=== PATIENT | female | born 1995 | race Caucasian/White ===

== ENCOUNTER 2022-07-16 09:56 | Inpatient (IN) | payer OTHER, SELFPAY ==
[2022-07-16] VITALS (50 sets, daily range): BP systolic 95–131; BP diastolic 60–80; PULSE 60–154; RESP 14–19; TEMP 36.6–37.2; O2SAT 92–100; BMI 25.9
[2022-07-16 10:33] LABS: Basophils Percent Auto 0.3 % (0.2-1.2); Eosinophils Percent Auto 0.4 % (0-4.4); Hematocrit 39.7 % (37.0-47.0); Hemoglobin 13.7 g/dL (12.0-15.0); Immature Granulocyte Absolute 0.03 K/mm3 (0.00-0.031); Immature Granulocyte Percent A 0.4 % (0-0.5); Lymphocytes Absolute Auto 1.68 K/mm3 (0.9-3.2); Lymphocytes Percent Auto 22.8 % (18.3-44.2); Mean Corpuscular HGB Conc 34.5 g/dl (32-36); Mean Corpuscular Hemoglobin 33.9 pg (26-34); Mean Corpuscular Volume 98.3 fl (80-100); Mean Platelet Volume 10.3 fl (7.4-10.4); Monocytes Absolute Auto 0.4 K/mm3 (0.1-0.6); Monocytes Percent Auto 5.2 % (2.6-8.5); Neutrophils Absolute Auto 5.2 K/mm3 (1.3-6.7); Neutrophils Percent Auto 70.9 % (45.5-73.1); Platelet Count Result 167 k/mm3 (150-375); Red Blood Count 4.04 M/mm3 (4.2-5.4); Red Cell Distribution Width 12.9 % (11.5-14.5); White Blood Count 7.4 K/mm3 (4.5-10.0)
[2022-07-16] MEDS: LACTATED RINGERS 1,000 ML 125 ML IV CONT ×2 (10:44→11:42)
--- NOTE | 2022-07-16 10:49 | LDADM ---
This patient, Emilie Ramirez, was admitted to Labor/Delivery/Recovery 120 on 07/16/22 at 09:56. Plans for labor, pain management and were discussed with patient. Patient/family oriented to hospital policies and general routines including ID bracelet, bed and alarms, visiting hours, pain management, procedures, bathroom and other care routines, personal items, smoking policy, room service/diet and guest tray routines, infant security routines, and visiting hours. Patient/Family are encouraged to report perceived risks to care and to ask questions if they do not understand what they are told or what they should do. See OBIX for further documentation.
[2022-07-16 11:30] LABS: Rapid Plasma Reagin Non-Reactive (NonReactive)
--- NOTE | 2022-07-16 11:57 | PM.IMHP ---
H&P: HPI History of Present Illness Date/Time: 07/16/22 11:57 Chief Complaint: CS for breech Narrative: Emilie is a 27yo G1 at 39.1 here for primary CS for breech. otherwise uncomplicated. She declined attempt at ECV. Review of Systems Review of Systems: All systems reviewed & are unremarkable except as noted in HPI and below PMFSH Family History Family History (Updated 06/22/22 @ 12:49 by Ratna Resendez RN) Father Hypertension Grandparent Diabetes mellitus Heart disease Grandparent Diabetes mellitus Social History Social History Smoking status: Never smoker Substance use: never Lack of Transportation: No Lack of Food: Never True Current Housing: I Have Housing Concerned About Future Housing: No Difficulty Paying Gas/Electric Bills: No Difficulty Paying for Meds: No Currently Unemployed: No Education: Bachelor's Degree Difficulty w/ Childcare or Family Care: No Spiritual care concerns: No Meds Home Medications and Allergies Home Medications Medication Instructions Recorded Confirmed Type prenat.vits,judy,ohe-vxgk-wjpso 1 tablet PO DAILY 06/22/22 06/22/22 History Allergies Allergy/AdvReac Type Severity Reaction Status Date / Time No Known Allergies Allergy Verified 06/22/22 12:46 Vital Signs Vital Signs - 24 hr 07/16/22 10:48 07/16/22 10:44 07/16/22 10:46 Pulse Rate 71 74 Blood Pressure 124/75 116/75 Oxygen Delivery Room Air 07/16/22 11:01 07/16/22 11:16 07/16/22 11:31 Pulse Rate 75 82 76 Blood Pressure 118/80 125/74 124/64 Oxygen Delivery Exam Const: General: no acute distress Resp: Effort & Inspection: normal respiratory effort Auscultation: clear to auscultation bilaterally Cardio: Rate: regular rate Rhythm: regular rhythm GI: GI Palp: Yes Soft to palpation Extrem: General: normal to inspection H&P: Results Labs Labs: Short CBC 07/16/22 Range/Units 10:13 WBC 7.4 (4.5-10.0) K/mm3 Hgb 13.7 (12.0-15.0) g/dL Hct 39.7 (37.0-47.0) % Plt Count 167 (150-375) k/mm3 Assessment and Plan Assessment and plan (1) Breech presentation: Code(s): O32.1XX0 - Maternal care for breech presentation, not applicable or unspecified Status: Acute Plan COnsented for CS for breech. Discussed RBA, questions answered, will proceed.
--- NOTE | 2022-07-16 11:59 | WPDHPUPDATE1 ---
History and Physical Update Update Date/Time: 07/16/22 11:59 History and Physical has been reviewed, including an updated exam of the patient. There are NO changes in the patient's condition. Risks, benefits, and alternatives have been discussed and questions answered. Patient agrees to proceed with procedure.
[2022-07-16] MEDS: ceFAZolin 2 GM/D5W 50 ML 2 GM/50 ML BAG IVPB (12:02)
--- NOTE | 2022-07-16 12:43 | WPDANESEPPF ---
Anes - Initial Pre Proc Eval Date/Time: 07/16/22 12:43 Surgeon: Shaye Horn MD Pre Op Diagnosis: C/S Patient Data Age: 27 Gender: F Height: 1.7 m Weight: 75 kg Last Vital Signs Pulse 76 07/16/22 11:31 BP 124/64 07/16/22 11:31 O2 Del Method Room Air 07/16/22 10:48 Allergies Allergy/AdvReac Type Severity Reaction Status Date / Time No Known Allergies Allergy Verified 06/22/22 12:46 Home Medications Medication Instructions Recorded Confirmed Type prenat.vits,judy,xhw-ubrf-czdam 1 tablet PO DAILY 06/22/22 06/22/22 History Laboratory Tests 07/16/22 07/16/22 07/16/22 10:13 10:13 10:13 WBC 7.4 K/mm3 K/mm3 (4.5-10.0) RBC 4.04 M/mm3 L M/mm3 (4.2-5.4) Hgb 13.7 g/dL g/dL (12.0-15.0) Hct 39.7 % % (37.0-47.0) MCV 98.3 fl fl (80-100) MCH 33.9 pg pg (26-34) MCHC 34.5 g/dl g/dl (32-36) RDW 12.9 % % (11.5-14.5) Plt Count 167 k/mm3 k/mm3 (150-375) MPV 10.3 fl fl (7.4-10.4) Immature Gran % (Auto) 0.4 % % (0-0.5) Neut % (Auto) 70.9 % % (45.5-73.1) Lymph % (Auto) 22.8 % % (18.3-44.2) Assumption % (Auto) 5.2 % % (2.6-8.5) Eos % (Auto) 0.4 % % (0-4.4) Baso % (Auto) 0.3 % % (0.2-1.2) Lymph # (Auto) 1.68 K/mm3 K/mm3 (0.9-3.2) Assumption # (Auto) 0.4 K/mm3 K/mm3 (0.1-0.6) Eos # (Auto) 0.0 K/mm3 K/mm3 (0-0.3) Baso # (Auto) 0.0 K/mm3 K/mm3 (0.0-0.1) Abs Immat Gran (auto) 0.03 K/mm3 K/mm3 (0.00-0.031) Absolute Neuts (auto) 5.2 K/mm3 K/mm3 (1.3-6.7) Absolute Nucleated RBC 0.0 K/mm3 K/mm3 (0.0-0.012) Nucleated RBC % 0.0 % % (0.0-0.2) RPR Non-reactive (NonReactive) Blood Type O Positive Antibody Screen Negative Patient hx anesthesia problems: none Family hx anesthesia problems: none Results Review: All pre-operative results and documents have been reviewed as part of the pre-operative evaluation. [facility] Family History Family History Father Hypertension Grandparent Diabetes mellitus Heart disease Grandparent Diabetes mellitus Social History Social History Smoking status: Never smoker Substance use: never Lack of Transportation: No Lack of Food: Never True Current Housing: I Have Housing Concerned About Future Housing: No Difficulty Paying Gas/Electric Bills: No Difficulty Paying for Meds: No Currently Unemployed: No Education: Bachelor's Degree Difficulty w/ Childcare or Family Care: No Spiritual care concerns: No Anes - Eval Final PreProcedure Day of Procedure 07/16/22 12:43 Patient weight: normal Heart: regular rate and rhythm Lungs: clear to auscultation Airway: Mallampati scale class II Neurological: alert and oriented Last oral intake: >/= 8 hours ASA classification: II Emergent: no Anesthetic plan: proceed Anesthesia type and monitoring: regional spinal and standard monitoring Results Review: All pre-operative results and documents have been reviewed as part of the pre-operative evaluation. Informed Consent: The patient's anesthetic plan and its attendant risks and benefits were discussed with the patient/family/POA. Questions were solicited and answers provided to the satisfaction of the patient/family/POA.
--- NOTE | 2022-07-16 13:15 | PM.OBPRVD ---
OB - Delivery Note Procedure Delivery date: 07/16/22 Procedure: primary section Events: Breech Presentation Route of delivery: Specimen: Yes (placenta) Quantitative Blood Loss (ml): 355 Anesthesia type: Spinal Disposition: Floor Complications: none Narrative: The patient was taken to the OR and had her epidural anesthesia dosed adequately. She was placed in dorsal supine position with left lateral tilt. SCDs and gilbert had been placed. She was prepped and draped in the normal sterile fashion. A Pfannensteil skin incision was made and carried through to the underlying layer of fascia. The fascia was incised in the midline and then extended laterally using Hallman scissors. The muscles were in the midline and the peritoneum was entered bluntly. The peritoneal incision was extended inferiorly and superiorly with care to avoid the bladder. The bladder blade was then inserted, the vesicouterine peritoneum was grasped, incised with Metzenbaum scissors, and a bladder flap created. The bladder blade was reinserted. A low transverse uterine incision was made with a scalpel and extended bluntly. AROM was performed and fluid was noted to be clear. The baby was delivered easily in breech presentation in normal fashion. The baby's oropharynx was suctioned. After 30 seconds, the cord was clamped and cut and the was handed off. Cord blood was obtained and the placenta was then removed manually. The uterus was exteriorized. A moist lap sponge was used to curette the endometrium. The uterine incision was then closed with two layers of 0-Vicryl in a running, locking fashion. Good hemostasis was noted. The posterior cul de sac was irrigated with normal saline and cleared of all clot and debris. The uterus was returned to the abdomen. Both lateral gutters were then irrigated. The rectus muscles were inspected and found to be hemostatic. The fascia was reapproximated using 0-Vicryl in running fashion. A rent in the fascia was also repaired with 3-0 vicryl so as to not induce a hernia. The subcutaneous tissue was irrigated with normal saline and made hemostatic with Bovie electrocautery. The subcutaneous tissue was reapproximated with a layer of running 2-0 plain gut. The skin was then closed with absorbable elicia. Steri strips and a bandage were applied. The uterus was evacuated. The patient tolerated the procedure very well. All counts were correct. She was taken to the recovery room in good condition. Baby Date of : 07/16/22 Time of : 12:35 Weeks of gestation at delivery: 39 Infant gender: Female Weight (pounds): 6 Weight (ounces): 13 presentation: breech Placenta delivery description: Manual Removal Cord Vessel Description: 3 Vessels and Delayed Cord Clamping score one minute: 9 score five minutes: 9
[2022-07-16] MEDS: OXYTOCIN 30 UNITS/NS 500 ML 30 UNITS/500 ML BAG 125 UNITS IV CONT (14:05)
[2022-07-16] MEDS: KETOROLAC 30 MG/ML VIAL (*BKC) IV PUSH (14:07)
--- NOTE | 2022-07-16 15:35 | PC.NURSE ---
Patient transferred to post room #291 via stretcher. Support person present. Oriented to unit, room, information board, rooming in, admission packet and security measures. Patient verbalizes understanding.
[2022-07-16] MEDS: DEXTROSE 5%/0.45% SOD CHL 1,000 ML 125 ML IV CONT (18:44)
[2022-07-17] MEDS: HYDROcodone/acetaminophen (*CRX) 5-325 MG TABLET 1 TAB PO ×4 (01:14→23:52)
[2022-07-17] MEDS: IBUPROFEN 600 MG TABLET PO ×4 (01:14→23:52)
[2022-07-17 04:35] VITALS: BP 115/69; PULSE 65; RESP 16; TEMP 36.5; O2SAT 100
[2022-07-17 05:27] LABS: Basophils Percent Auto 0.2 % (0.2-1.2); Eosinophils Percent Auto 0.4 % (0-4.4); Hematocrit 31.7 % (37.0-47.0); Immature Granulocyte Absolute 0.06 K/mm3 (0.00-0.031); Immature Granulocyte Percent A 0.6 % (0-0.5); Lymphocytes Absolute Auto 1.45 K/mm3 (0.9-3.2); Lymphocytes Percent Auto 15.7 % (18.3-44.2); Mean Corpuscular HGB Conc 34.7 g/dl (32-36); Mean Corpuscular Hemoglobin 34.6 pg (26-34); Mean Corpuscular Volume 99.7 fl (80-100); Mean Platelet Volume 10.7 fl (7.4-10.4); Monocytes Absolute Auto 0.6 K/mm3 (0.1-0.6); Neutrophils Absolute Auto 7.1 K/mm3 (1.3-6.7); Neutrophils Percent Auto 77.1 % (45.5-73.1); Platelet Count Result 138 k/mm3 (150-375); Red Blood Count 3.18 M/mm3 (4.2-5.4); Red Cell Distribution Width 12.9 % (11.5-14.5); White Blood Count 9.2 K/mm3 (4.5-10.0)
--- NOTE | 2022-07-17 07:06 | PM.OBPNVD ---
OB - PN: Subj Subjective Date/time seen: 07/17/22 07:06 Patient comments: no complaints and pain well controlled baby status: doing well and nursing well Slemp feeding status: exclusively breast feeding Narrative: POD 1 from primary CS. Doing well. Normal lochia. Eating, ambulating, gilbert out. Has not voided yet. OB - PN: Obj Data Labs 07/17/22 04:32 Labs: Laboratory Results - last 24 hr 07/16/22 07/16/22 07/16/22 10:13 10:13 10:13 WBC 7.4 RBC 4.04 L Hgb 13.7 Hct 39.7 MCV 98.3 MCH 33.9 MCHC 34.5 RDW 12.9 Plt Count 167 MPV 10.3 Immature Gran % (Auto) 0.4 Neut % (Auto) 70.9 Lymph % (Auto) 22.8 Sebastian % (Auto) 5.2 Eos % (Auto) 0.4 Baso % (Auto) 0.3 Lymph # (Auto) 1.68 Sebastian # (Auto) 0.4 Eos # (Auto) 0.0 Baso # (Auto) 0.0 Abs Immat Gran (auto) 0.03 Absolute Neuts (auto) 5.2 Absolute Nucleated RBC 0.0 Nucleated RBC % 0.0 RPR Non-reactive Blood Type O Positive Antibody Screen Negative 07/17/22 04:32 WBC 9.2 RBC 3.18 L Hgb 11.0 L Hct 31.7 L MCV 99.7 MCH 34.6 H MCHC 34.7 RDW 12.9 Plt Count 138 L MPV 10.7 H Immature Gran % (Auto) 0.6 H Neut % (Auto) 77.1 H Lymph % (Auto) 15.7 L Sebastian % (Auto) 6.0 Eos % (Auto) 0.4 Baso % (Auto) 0.2 Lymph # (Auto) 1.45 Sebastian # (Auto) 0.6 Eos # (Auto) 0.0 Baso # (Auto) 0.0 Abs Immat Gran (auto) 0.06 H Absolute Neuts (auto) 7.1 H Absolute Nucleated RBC 0.0 Nucleated RBC % 0.0 RPR Blood Type Antibody Screen OB - PN A/P Plan day: 1 Plan: routine care Comments: Doing very well. Bandage off, IV out today, may shower. Time Spent With Patient Time: Total time spent is greater than 50% in coordination of care (as documented) at patient's floor/unit and/or counseling patient: Exam Narrative: NAD abdomen soft, appropriately tender, incision bandaged Extremities nontender with 1+ edema
[2022-07-17 07:40] VITALS: BP 123/77; PULSE 67; RESP 16; TEMP 36.5; O2SAT 100
--- NOTE | 2022-07-17 07:50 | WPDANLDNPN2 ---
Anes-Prog Note L&D-Neuraxial Date/Time: 07/17/22 07:50 Neuraxial medications: intrathecal PF morphine Opiod-related complaints: none Patient feedback: Patient satisfied with post-operative pain management.
--- NOTE | 2022-07-17 07:50 | WPDANLDPN2 ---
Anes-Prog Note L&D Date/Time: 07/17/22 07:50 Comfortable throughout: section Neuraxial method: spinal Epidural/Spinal procedure site: clean & non-tender Neuro status: Neuro function grossly intact. Cardiovascular status: normal Respiratory status: normal Airway patency: baseline Mental status: baseline Post-Op hydration status: normal Vital Signs: Last Vital Signs Temp 36.5 C 07/17/22 04:35 Pulse 65 07/17/22 04:35 Resp 16 07/17/22 04:35 BP 115/69 07/17/22 04:35 Pulse Ox 100 07/17/22 04:35 O2 Del Method Room Air 07/16/22 15:17 Pain score (VAS): 0 I/O: Intake & Output 07/16/22 07/16/22 07/17/22 15:59 23:59 07:59 Intake Total 2000 1600 Output Total 300 3925 Balance 1700 -2326 Post-procedural complaints: none Patient feedback: Patient satisfied with anesthetic care.
[2022-07-17] MEDS: MULTIVIT/MIN/PREN/FOL AC/IRON TABLET 1 TAB PO (08:10)
[2022-07-17] MEDS: DOCUSATE SODIUM 100 MG CAPSULE PO ×2 (08:10→14:04)
[2022-07-17] MEDS: SIMETHICONE 80 MG TAB.CHEW PO (08:12)
[2022-07-17 11:42] VITALS: BP 115/65; PULSE 74; RESP 16; TEMP 37.1; O2SAT 98
--- NOTE | 2022-07-17 12:36 | PC.NURSE ---
[id number] Introductions were made, then consulted with patient to assess needs related to . Mother is demonstrating her infant cross cradle to the right breast. Resources provided for inpatient and outpatient services with the feeding sheet, mom/baby guide and name written on the white board. Mother voiced understanding of information and consents for some adjusting since she states the latch feels a bit pinchy possibly related to the not close to mothers body with the mouth angled down pulling the nipple. Mother demonstrates how to detach infant from the breast and nipple is misshaped. Reviewed positioning with infants ear, shoulder and hip in alignment. Optimal big, wide, open gape with brought into the breast for a deep latch with the chin buried and nose near. Mother states the latch is improved and there's no pain. Demonstrated to mother how she can support the effective latch to prevent from pulling on the nipple by supporting infant close to the body. Educated mother on how to watch and listen for signs of swallowing. Reviewed good handwashing when or touching the breast/nipples to prevent infection. Resources used to facilitate learning were used with the visual handouts, tool, mom and baby guide. Mother voiced understanding of skin to skin to encourage if it has been 2 -2.5 hours since the start of the last , to call if does not latch, or if there is discomfort with . Resources provided for inpatient/outpatient with business card, feeding sheet and the mom/baby guide. Mother voiced understanding of information, demonstrated learning and will call if there is a request for assistance. Reported to the primary RN.
[2022-07-17] MEDS: HYDROcodone/acetaminophen (*CRX) 10-325 MG TABLET 1 TAB PO (19:06)
[2022-07-17 19:09] VITALS: BP 122/79; PULSE 76; RESP 16; TEMP 36.7; O2SAT 100
[2022-07-18 07:23] VITALS: BP 117/78; PULSE 74; RESP 16; TEMP 36.6; O2SAT 100
--- NOTE | 2022-07-18 07:32 | P.PNOB_ITS ---
OB - PN: Subj Subjective Date/time seen: 07/18/22 07:32 Patient comments: no complaints and incisional pain [place] baby status: doing well and nursing well [place] feeding status: exclusively breast feeding Narrative: would like DC home tomorrow. OB - PN: Obj Data Labs 07/17/22 04:32 OB - PN A/P Assessment and Plan (1) delivery delivered: Code(s): O82 - Encounter for delivery without indication Status: Acute Plan day: 2 Plan: routine care Time Spent With Patient Time: Total time spent is greater than 50% in coordination of care (as documented) at patient's floor/unit and/or counseling patient: Exam Narrative: NAD abdomen soft, appropriately tender, incision CDI Extremities nontender with 1+ edema
[2022-07-18] MEDS: HYDROcodone/acetaminophen (*CRX) 5-325 MG TABLET 1 TAB PO ×3 (08:53→18:25)
[2022-07-18] MEDS: IBUPROFEN 600 MG TABLET PO ×2 (08:54→18:25)
[2022-07-18] MEDS: MULTIVIT/MIN/PREN/FOL AC/IRON TABLET 1 TAB PO (08:55)
[2022-07-18] MEDS: DOCUSATE SODIUM 100 MG CAPSULE PO ×2 (08:55→15:40)
[2022-07-18] MEDS: SIMETHICONE 80 MG TAB.CHEW PO ×3 (08:55→18:25)
[2022-07-18] MEDS: LANOLIN (LANSINOH) 7.5 GM CREAM 1 APPLIC TOPICAL (15:40)
[2022-07-18 20:20] VITALS: BP 120/78; PULSE 71; RESP 18; TEMP 36.6; O2SAT 100
[2022-07-19] MEDS: SIMETHICONE 80 MG TAB.CHEW PO ×2 (04:45→09:19)
[2022-07-19] MEDS: IBUPROFEN 600 MG TABLET PO ×2 (04:45→11:44)
[2022-07-19] MEDS: HYDROcodone/acetaminophen (*CRX) 5-325 MG TABLET 1 TAB PO ×2 (04:45→09:19)
[2022-07-19 07:20] VITALS: BP 125/83; PULSE 71; RESP 16; TEMP 36.8; O2SAT 100
--- NOTE | 2022-07-19 07:55 | PM.OBPNVD ---
OB - PN: Subj Subjective Date/time seen: 07/19/22 07:55 Patient comments: no complaints, pain well controlled, tolerating diet and flatus present baby status: doing well OB - PN: Obj Data Labs 07/17/22 04:32 OB - PN A/P Plan day: 2 Plan: routine care and discharge home (Follow up in 1 week) Time Spent With Patient Time: Total time spent is greater than 50% in coordination of care (as documented) at patient's floor/unit and/or counseling patient: Time with patient: less than 15 minutes Review of Systems Review of Systems: All systems reviewed & are unremarkable except as noted in HPI and below Exam Narrative: Fundus firm. Vaginal flow controlled. Incision dry and intact. Negative homans. No redness, warmth, or pain of lower ext. Const: General: comfortable Chest: Breast/axilla inspection: normal inspection of the breasts Resp: Effort & Inspection: normal respiratory effort Auscultation: clear to auscultation bilaterally Cardio: Rate: regular rate GI: GI Palp: Yes Soft to palpation Psych: Appearance: grossly normal Affect: normal affect Attitude: cooperative Thought content: Yes Normal thought content present Judgement: Good judgement present (Psych)
--- NOTE | 2022-07-19 07:55 | PM.OBDSVD ---
DS: Admitting Diagnosis Discharge Date 07/19/22 Admitting Diagnosis Scheduled DS: Discharge Diagnosis Discharge Diagnosis (1) delivery delivered: Code(s): O82 - Encounter for delivery without indication Status: Acute OB - DS: Summary OB Procedures : None OB Procedures Intrapartum: Spontaneous Vag Delivery OB Procedures: : None Peripartum Data Procedures: Procedures Operation Date: 07/16/22 12:00 Actual Procedure Side Surgeon p Section Shaye Horn MD Time Spent with Patient Time attestation: Total time spent providing and/or coordinating discharge services: Discharge Plan Discharge Attending physician on discharge: Shaye Horn Discharging Clinician: Linette Brower Patient Disposition: Home, Self-Care Activity: pelvic rest Diet: as tolerated Patient Instructions: Antibiotic Form Stand Alone Forms: General Discharge Information Follow-up/Referrals: Shaye Horn MD [Physician] - Discharge Medications: New hydrocodone-acetaminophen 5-325 mg tablet 1 tablet PO Q6H PRN (Reason: pain) Qty: 20 0RF ibuprofen 600 mg Tablet 600 mg PO Q6H PRN (Reason: Cramping) Qty: 20 0RF Continued #2 Tablet 1 tablet PO DAILY Date of admission: 07/16/22 09:56 Primary Care Provider: UNKNOWN,DOCTOR Admitting Provider: Shaye Horn Attending physician on admission: Shaye Horn Condition: Stable
[2022-07-19] MEDS: DOCUSATE SODIUM 100 MG CAPSULE PO (09:19)
[2022-07-19] MEDS: MULTIVIT/MIN/PREN/FOL AC/IRON TABLET 1 TAB PO (09:19)
--- NOTE | 2022-07-19 12:01 | PC.NURSE ---
Patient viewed the discharge video Mother & Baby Care, The First Two Weeks . Patient was given the opportunity and encouraged to ask questions. Patient verbalized understanding of information shared and has been given the mother/baby guide for home reference.
[2022-07-20 10:28] VITALS: BP 119/73; PULSE 75; RESP 18; TEMP 37.1; O2SAT 100
== END 2022-07-19 12:25 | disposition home or self-care (01) | DRG 788 ==
LOC: ANHOB2 07-19 10:17 → ANHLDR 07-20 09:26 → ANHOB2 07-20 09:26
PROVIDERS: Admitting Provider Obstetrics & Gynecology; Visit Provider Advanced Practice Midwife
PROC: 10D00Z1 Extraction of Products of Conception, Low, Open Approach (ICD-10-PCS; CPT 59514; principal; 2022-07-16 12:00)
DX: O32.1XX0 Maternal care for breech presentation, not applicable or unspecified (principal); Z37.0 Single live birth; Z3A.39 39 weeks gestation of pregnancy
CPT/HCPCS: 36415; 85025; 86592; 86850; 86900; 86901; A9270; J0131; J0690; J1885; J2274; J2405; J2590; J7120

== ENCOUNTER 2023-08-28 07:44 | Emergency (ER) | payer OTHER, SELFPAY ==
[2023-08-28 07:47] VITALS: BP 133/79; PULSE 81; RESP 18; TEMP 36.6; O2SAT 98
--- NOTE | 2023-08-28 08:26 | ED.GENADULT ---
HPI - General Adult General Chief complaint: Vaginal Bleeding Stated complaint: vag bleed 12 weeks Time Seen by Provider: 08/28/23 07:46 History of Present Illness HPI narrative: 28-year-old female presenting emergency department for evaluation vaginal bleeding that started this morning. Patient is approximately 12 weeks does follow-up with Dr. Cuevas. Patient states today she did notice some vaginal bleeding that was bright red. Initial bright red vaginal bleeding patient states the bleeding has improved. Patient did have an outpatient ultrasound with OB Gy[facility], US 07/[address] Cuevas. 8 wks 6 days. 03/03 CAROL. 09/01 follow up scheduled with Dr. Cuevas Related Data Home Medications Medication Instructions Recorded Confirmed prenat.vits,judy,plw-fomp-lltsg 1 tablet PO DAILY 06/22/22 06/22/22 Allergies Allergy/AdvReac Type Severity Reaction Status Date / Time No Known Allergies Allergy Verified 06/22/22 12:46 Review of Systems Review of Systems: All systems reviewed & are unremarkable except as noted in HPI and below PMFSH Family History Family History Father Hypertension Grandparent Diabetes mellitus Heart disease Grandparent Diabetes mellitus Social History Social History Smoking status: Never smoker Substance use: never Lack of Transportation: No Lack of Food: Never True Current Housing: I Have Housing Concerned About Future Housing: No Difficulty Paying Gas/Electric Bills: No Difficulty Paying for Meds: No Currently Unemployed: No Education: Bachelor's Degree Difficulty w/ Childcare or Family Care: No Spiritual care concerns: No Exam Narrative: APPEARANCE: Well appearing, no pain, no distress, well-nourished. HEAD: normocephalic, atraumatic. EYES: PERRLA/EOMI, conjunctivae clear. NOSE: Normal no drainage NECK: Supple. No adenopathy, no masses. RESPIRATORY: Airway patent, respirations nonlabored. Clear to auscultation bilaterally, no rales, rhonchi, wheezing. CARDIOVASCULAR: Regular rate and rhythm without murmurs rubs or gallops. ABDOMINAL: Soft, nontender, nondistended, normal bowel sounds MUSCULOSKELETAL: Moves all extremities. Strength/ROM intact, No edema, No calf tenderness. NEURO: Alert. Cranial nerves II through XII intact. Good gait. Good coordination SKIN: Warm, dry. Normal Color General exam: Normal appearing cervix, old brown blood in the vaginal vault with no bright red bleeding PSYCHIATRIC: Normal affect/mood. Course Course Emergency Course: Patient was discharged to home with outpatient follow-up Vital Signs Vital signs: Vital Signs Temperature 97.9 F 08/28/23 07:47 Pulse Rate 81 08/28/23 07:47 Respiratory Rate 18 08/28/23 07:47 Blood Pressure 133/79 08/28/23 07:47 Pulse Oximetry 98 08/28/23 07:47 Oxygen Delivery Room Air 08/28/23 07:47 Temperature 97.9 F 08/28/23 07:47 Pulse Rate 70 08/28/23 10:20 Respiratory Rate 16 08/28/23 10:20 Blood Pressure 122/89 08/28/23 10:20 Pulse Oximetry 100 08/28/23 10:20 Oxygen Delivery Room Air 08/28/23 07:47 Medical Decision Making [facility] Narrative Medical decision making narrative: 28-year-old female presents emergency department for evaluation of vaginal bleeding. Patient is proximal 12 weeks . I discussed the case with Dr. Cuevas and He did confirm the outpatient ultrasound. Bedside ultrasound showed no heartbeat. Patient's beta hCG is 2144. On pelvic exam patient did have some old brown blood but no bright red blood. Patient is O positive. Patient was updated on the results of her imaging and concerns for miscarriage. Patient was encouraged close follow-up with Dr. Cuevas. Differential Diagnosis Differential Diagnosis: Vaginal discharge, vaginal bleeding, early miscarriage Vital Signs Vital Signs: Vital Signs Te
[2023-08-28 08:42] LABS: Basophils Percent Auto 0.3 % (0.2-1.2); Eosinophils Absolute Auto 0.1 K/mm3 (0-0.3); Hematocrit 40.2 % (37.0-47.0); Hemoglobin 13.4 g/dL (12.0-15.0); Immature Granulocyte Absolute 0.01 K/mm3 (0.00-0.031); Immature Granulocyte Percent A 0.3 % (0-0.5); Lymphocytes Absolute Auto 1.34 K/mm3 (0.9-3.2); Lymphocytes Percent Auto 37.9 % (18.3-44.2); Mean Corpuscular HGB Conc 33.3 g/dl (32-36); Mean Corpuscular Hemoglobin 32.4 pg (26-34); Mean Corpuscular Volume 97.3 fl (80-100); Mean Platelet Volume 9.8 fl (7.4-10.4); Monocytes Absolute Auto 0.2 K/mm3 (0.1-0.6); Monocytes Percent Auto 5.9 % (2.6-8.5); Neutrophils Absolute Auto 1.9 K/mm3 (1.3-6.7); Neutrophils Percent Auto 53.6 % (45.5-73.1); Platelet Count Result 176 k/mm3 (150-375); Red Blood Count 4.13 M/mm3 (4.2-5.4); Red Cell Distribution Width 12.9 % (11.5-14.5); White Blood Count 3.5 K/mm3 (4.5-10.0)
[2023-08-28 08:45] LABS: Appearance Urine Clear (Clear); Bacteria Urine None Seen /hpf; Bilirubin Urine Negative (Negative); Blood Urine 3+ (Negative); Color Urine Yellow (Yellow); Glucose Urine UA Negative (Negative); Ketones Urine Negative (Negative); Leukocyte Esterase Ur Negative LEU/UL (Negative); Nitrate Urine Negative (Negative); Non Pathogenic Casts 0-2; Protein Urine Negative (Negative); RBC Urine 0-2 /hpf (0-2); Squamous Epithelial Cell Urine Occasional /hpf (Few); Urobilinogen Urine 0.2 mg/dL (<2.0); WBC Urine 0-5 /hpf (0-3); pH Urine 7.5 (5.0-9.0)
[2023-08-28 08:47] LABS: Add Urine Microscopic? YES; Specific Grav Ur 1.004 (1.001-1.035)
[2023-08-28 08:53] LABS: Alanine Aminotransferase 18 U/L (6-35); Albumin Level 4.8 g/dL (3.5-5.1); Alkaline Phosphatase 60 U/L (38-126); Anion Gap 11 mmol/L (4-12); Aspartate Amino Transferase 23 U/L (14-36); Bilirubin,Total 0.6 mg/dL (0.2-1.3); Blood Urea Nitrogen 9 mg/dL (7-17); Calcium 9.5 mg/dL (8.4-10.2); Carbon Dioxide 22 mmol/L (22-30); Chloride 108 mmol/L (98-107); Estimated CRCL calculation 111 ml/min; Estimated Glomerular Filt Rate > 60; Glucose 86 mg/dL (65-110); Potassium 3.9 mmol/L (3.4-5.0); Sodium 141 mmol/L (137-145)
[2023-08-28 08:56] LABS: Prothrombin Time 13.1 Seconds (11.1-14.7)
[2023-08-28 08:57] LABS: Partial Thromboplastin Time 26.2 Seconds (22.3-36.8)
[2023-08-28 10:20] VITALS: BP 122/89; PULSE 70; RESP 16; O2SAT 100
== END 2023-08-28 10:20 | disposition home or self-care (01) ==
PROVIDERS: Emergency Provider Emergency Medicine
DX: O46.91 Antepartum hemorrhage, unspecified, first trimester (principal); Z3A.12 12 weeks gestation of pregnancy
CPT/HCPCS: 36415; 80053; 81001; 84702; 85025; 85610; 85730; 99283

== ENCOUNTER 2023-09-13 01:24 | Day surgery (SDC) | payer OTHER, SELFPAY ==
[2023-09-12 12:58] VITALS: BMI 20.3
--- NOTE | 2023-09-12 13:03 | PC.NURSE ---
Report to the Outpatient Waiting Room, entrance under the green pavilion located off [facility], at time _1030_ on date _[id number]_. Planned Procedure Time: _1230_. Time changes happen often and if your time is changed the preop area will call you the afternoon before. - You and your visitor will be asked to self-screen and do not enter if you have any COVID symptoms. - A mask is optional within the hospital at this time. Patients may have clear liquids (water, carbonated beverages, clear teas, apple juice) until 3 hours prior to surgery with a maximum of 20 ounces. - No food from midnight until time of surgery Take the following medications with a SIP of water the morning of surgery: __None DO NOT STOP ANY OF YOUR OTHER PRESCRIPTION MEDICATIONS PRIOR TO SURGERY ?EXCEPT THE FOLLOWING Medications to discontinue per physician None Date to take last dose Please no make-up, nail turkish, hairspray, perfume, deodorant, or body powder the day of surgery. No jewelry (including any body piercings) or valuables the day of surgery, leave them at home. Please take a shower or bath the night before, or the morning of, surgery with an antibacterial soap. Wear comfortable, loose fitting clothing. - Jewelry must be removed prior to entering the operating room. Rings and piercings that are not removed may be cut off. - The hospital will not accept responsibility for valuables. - Please leave all valuables, including medications, at home the day of surgery. If you are going home after surgery, a licensed tour bus driver/guide must drive you home. - NO public transportation without another adult if you receive anesthesia. - We recommend that an adult stay with you for 24 hours following discharge. - We also recommend that you do not drive, make important decision, drink alcoholic beverages, or take any drugs that were not prescribed by your health care provider for at least 24 hours after your discharge time. Follow any additional instructions given to you from your surgeon. If you or anyone in your household have experienced Covid symptoms in the past week, please notify your surgeon or the nurse liaison at the phone number below for possible testing. Telephone instructions given to __Anna___and asked if any additional questions and then verbalized understanding. Patient advised to call surgeon office or pre surgery nurse liaison [phone] if any additional questions.
[2023-09-13] MEDS: LACTATED RINGERS 1,000 ML 30 ML IV CONT (10:30)
--- NOTE | 2023-09-13 10:56 | PM.OBTRLD ---
OB - Triage/Final Diagnosis Visit Information Comments/Additional reasons for admission: I have assessed the risk for this patient, Emilie Ramirez, and determined that she would benefit from observation care.
[2023-09-13] MEDS: ACETAMINOPHEN 500 MG TABLET 1000 MG PO (11:14)
--- NOTE | 2023-09-13 11:14 | P.PNAN_ITS ---
Anes - Initial Pre Proc Eval Procedure: Operation Date: 09/13/23 12:30 Proposed Procedures p Suction Dilation and Curettage - Hammad Cuevas MD Date/Time: 09/13/23 11:14 Surgeon: Hammad Cuevas MD Pre Op Diagnosis: Retained products of conception Patient Data Age: 28 Gender: F Height: 1.7 m Weight: 59 kg Allergies Allergy/AdvReac Type Severity Reaction Status Date / Time No Known Allergies Allergy Verified 09/13/23 11:14 Home Medications Medication Instructions Recorded Confirmed Type No Home Medications 09/12/23 09/12/23 History Patient hx anesthesia problems: none Family hx anesthesia problems: none Results Review: All pre-operative results and documents have been reviewed as part of the pre- operative evaluation. PMFSH Past Medical History Medical History (Updated 09/13/23 @ 11:14 by Ross Damon MD) Missed ab Family History Family History Father Hypertension Grandparent Diabetes mellitus Heart disease Grandparent Diabetes mellitus Social History Social History Smoking status: Never smoker Alcohol intake: current Drinks per week: 1 Substance use: never Lack of Transportation: No Lack of Food: Never True Current Housing: I Have Housing Concerned About Future Housing: No Difficulty Paying Gas/Electric Bills: No Difficulty Paying for Meds: No Currently Unemployed: No Education: Bachelor's Degree Difficulty w/ Childcare or Family Care: No Living arrangements: with family Spiritual care concerns: No Anes - Eval Final PreProcedure Day of Procedure 09/13/23 11:14 Patient weight: normal Heart: regular rate and rhythm Lungs: clear to auscultation Airway: Mallampati scale class II Neurological: alert and oriented Last oral intake: >/= 8 hours ASA classification: II Emergent: no Anesthetic plan: proceed Anesthesia type and monitoring: general GIVS and standard monitoring Results Review: All pre-operative results and documents have been reviewed as part of the pre- operative evaluation. Informed Consent: The patient's anesthetic plan and its attendant risks and benefits were discussed with the patient/family/POA. Questions were solicited and answers provided to the satisfaction of the patient/family/POA.
[2023-09-13 11:15] VITALS: BP 127/74; PULSE 71; RESP 16; TEMP 36.6; O2SAT 100
--- NOTE | 2023-09-13 11:56 | WPDHPUPDATE1 ---
History and Physical Update Update Date/Time: 09/13/23 11:56 History and Physical has been reviewed, including an updated exam of the patient. There are NO changes in the patient's condition. Risks, benefits, and alternatives have been discussed and questions answered. Patient agrees to proceed with procedure.
[2023-09-13] MEDS: LIDOCAINE HCL 1% LOCAL INJ 10 ML VIAL INFILTRATE (12:19)
--- NOTE | 2023-09-13 12:25 | W.PM.PROC2 ---
Procedure Note - Detailed Date of Procedure 09/13/23 Pre-op Diagnosis Retained products of conception Post-op Diagnosis Same Procedure Performed Suction D&C Surgeon Hammad Cuevas MD Anesthesia MAC Indications missed Findings normal-appearing vulva vagina and cervix to. Moderate amount of products conception within the uterus. 8 cm uterus Description of Procedure the patient was taken the operating room. She was prepped and draped in dorsal lithotomy position after induction of mac anesthesia. A speculum was placed in the vagina. Cervix grasped with tenaculum. The cervix was dilated to about 1 cm Using Coles dilators. A 8. Tamazight curved curette was used to perform suction D&C. The curette was introduced and vacuum was applied. The curette was removed over all surfaces of the intrauterine cavity multiple times. This was done until all the surfaces were clear and had the familiar grainy texture they can be felt through the instrument. A sharp curette was then used to curettage all the surfaces. The suction cup was then reapplied 1 more time to remove any debris. The instruments were removed. The speculum and tenaculum were removed. The patient tolerated the procedure well. She was taken recovery room stable condition. Estimated Blood Loss 50 Drains No Packing No Pathology Yes Complications No immediate complications Condition Stable Disposition PACU
[2023-09-13 12:26] VITALS: BP 108/59; PULSE 63; RESP 14
[2023-09-13 12:55] VITALS: BP 108/59; PULSE 63; RESP 20
[2023-09-13 13:05] VITALS: BP 109/62; PULSE 59; RESP 20
== END 2023-09-13 13:15 | disposition home or self-care (01) ==
PROVIDERS: Visit Provider Obstetrics & Gynecology
PROC: (CPT 59812; principal; 2023-09-13 12:30)
DX: O03.4 Incomplete spontaneous abortion without complication (principal)
CPT/HCPCS: 59812; 36415; 85461; 86850; 86900; 86901; 88305; A9270; J1100; J2250; J2405; J2704; J3010; J7120

== ENCOUNTER 2024-08-13 09:48 | Outpatient (CLI) | payer OTHER, SELFPAY ==
[2024-08-13 10:22] LABS: Hematocrit 35.1 % (37.0-47.0); Hemoglobin 11.9 g/dL (12.0-15.0); Mean Corpuscular HGB Conc 33.9 g/dl (32-36); Mean Corpuscular Volume 100.3 fl (80-100); Mean Platelet Volume 10.2 fl (7.4-10.4); Platelet Count Result 152 k/mm3 (150-375); Red Cell Distribution Width 13.1 % (11.5-14.5); White Blood Count 6.8 K/mm3 (4.5-10.0)
--- OUTSIDE RECORDS SUMMARY | 2024-08-13 10:28 | XMS_ITS | Data Portability ---
Author Organization [facility] Address [address] [place] [address] Assessment Encounter Date Assessment Date Assessment LastModified by Organization Details LastModified Time 06/29/2024 06/29/2024 Patient is ___weeks . Discussed plan. Not available 06/29/2024 09:37:01 07/13/2024 07/13/2024 Patient is ___weeks . Discussed plan. [email or web address] Not available 07/13/2024 10:58:26 07/27/2024 07/27/2024 Patient is ___weeks . Discussed plan. Not available 07/27/2024 09:46:45 08/03/2024 08/03/2024 Patient is ___weeks . Discussed plan. Not available 08/03/2024 17:06:35 08/11/2024 08/11/2024 Patient is _38__weeks . Discussed plan. [email or web address] Not available 08/11/2024 09:43:41 Plan of Treatment Reminders Order Date Submit Date Provider Last Modified By Organization Details Last Modified Time Details Appointments SURG CSection 2024 07:30A Aniya CUEVAS MD Not available Not available Not available SURG POST OP 2024 08:45A Aniya CUEVAS MD Not available Not available Not available POST 2024 08:45A Aniya CUEVAS MD Not available Not available Not available Lab None recorded. Referral None recorded. Procedures None recorded. Surgeries section (SURG) [address] [facility], [address], [place], [address], 07/13/2024 17:10:42 section (SURG) 2024 025 API-830 [place] [facility], [address], [place], [address], 07/01/2024 19:34:17 Imaging None recorded. Medication Orders None recorded. Patient TargetsNo targets recorded. Patient InstructionsNo instructions recorded. Reason for Referral None Reported. Results Created Date Observation Date Name Description Value Unit Range Abnormal Flag Note LastModifiedBy Organization Detail LastModifiedTime 06/01/1906/01/2024 HEMOG LOBIN (HGB) HGB 11.4 g/dL (based on docume nted legal sex) 11.6-1 5.4 low Not Available [facility] (Lab) [address], [place], [address], 06/02/2024 13:39:11 06/01/19 25 06/01/2024 HEMAT OCRIT (HCT) HCT 33.9 % (based on docume nted legal sex) 34.0-4 5.0 low Not Available [facility] (Lab) [address], [place], [address], 06/02/2024 13:39:12 06/01/19 25 06/01/2024 HIV 1/2 ANTIG EN/AN TIBOD Y, REFLE X CONFI RMATI ON HIV antigen/anti body Nonrea ctive nonrea ctive HIV-1 antig en and HIV-1 /HIV- 2 antib odies were not detec jarred. No labor atory evide nce of HIV infec tion. Not Available [facility] (Lab) [address], [place], [address], 06/02/2024 13:39:12 06/01/19 25 06/01/2024 GTT - GESTA ANA L SCREE N, ACOG OB glucose, 1 hour screen 94 mg/dL 70-135 Not Available [facility] (Lab) [address] [facility], [place], [address], 06/02/2024 13:39:12 06/01/19 25 06/01/2024 RPR SCREE N, REFLE X TITER /CONF IRMAT ION RPR screen Nonrea ctive nonrea ctive Not Available [facility] (Lab) [address] [facility], [place], [address], 06/02/2024 13:39:13 07/28/1907/27/2024 CULTU RE: GROUP B STREP SCREE N, REFLE X SUSCE PTIBI LITY result report SEE RESULT S BELOW abnormal Test: Cultu re: Group B Strep , Refle x Susce ptibi lity ([facility]/ [facility] ) Speci men Sourc e: Vagin a/Rec everardo Speci men Type: Vagin al/Re ctal Speci men Date: 2024 1417 Resul t Date: 2024 0852 Resul t Statu s: Final resul t Abnor mal: Yes Resul gerardog Lab: [facility] [address] [facility] [address] Tel: CULTU RE ----- ----- ----- --- Posit mak for Strep tococ cus agala ctiae (Grou p B) (Abno rmal) Clind amyci n is presu med to be resis tant based on detec tion of induc ible clind amyci n resis tance ( D-t est posit mak ) . Eryth romyc in = resis tant. Cefaz lubna may be used for intra partu m proph ylaxi s in penic illin -heike rgic women at low risk, and Vanco mycin is recom karma d for women at high risk for anaph ylaxi s. Susce ptibi lity testi ng is not neces jarocho for these drugs . Not Available [facility] (Lab) [address] [facility], [place], [address], 07/31/2024 09:56:54 Result Notes None recorded. Problems Name Problem SNOMED Code Status Onset Date Resolution Date Notes Provider Name and Address Organization Details Recorded Time Pregnanc y 16625451 Completed 202107/30/2022 [facility] 4 10:17:11 Placenta previa 95426026 Completed [facility] - [place] q4, pelvic rest RESOLVED !! Julieta Murphy jeni, [facility] 3 16:28:36 Uterine size for dates discrepa ncy 943920395 Completed 2022 Julieta [facility] 3 16:28:36 Breech presenta tion 2856128 Completed CS 07/16 unless no longer breech Julieta [facility] 3 16:28:36 Pregnanc y 00288317 Active 2023 Ping ngo, [facility] 4 10:17:10 Deliveri es by 044821164 Active Done for breech, REPEAT Hammad Cuevas MD [address], [place], [address], [facility] 5 11:33:21 Problem Notes None recorded. Procedures Surgical History Date Name Laterality Status Provider Name and Address Organization Details Recorded Time 09/13/19 24 SUCTION DILATION & CURETTAGE (SURG) completed Kailash Zuniga [facility] 09/13/2023 13:59:13 09/04/19 23 Date of Last Pap Smear completed Ayesha Glez [facility] 08/05/2023 14:42:53 07/17/19 23 SECTION (SURG) completed Nereyda Michaels [facility] 07/31/2022 09:41:01 09/01/19 22 Date of Last Mammogram completed Kady Khan [facility] 09/03/2022 11:08:18 04/15/19 15 extraction of wisdom tooth completed Radhika Slade [facility] 11/30/2021 14:40:14 Imaging Results None recorded. Procedure Notes None recorded. Medical Equipment None Reported. Allergies No known drug allergies Medications Name Sig Start Date Stop Date Status Note LastModified by Organization Details LastModified Time azithromyci n 250 mg tablet 03/16 completed Not Available Not Available Not Available hydrocodone 5 mg-acetamin ophen 325 mg tablet TAKE 1 TABLET BY MOUTH EVERY 6 HOURS NEEDED 09/03 completed Not Available Not Available Not Available misoprostol 200 mcg tablet TAKE 1 TABLET BY MOUTH EVERY DAY NEEDED 01/05 completed Not Available Not Available Not Available ibuprofen 600 mg tablet TAKE 1 TABLET BY MOUTH EVERY 6 HOURS NEEDED FOR CRAMPING 09/03 completed Not Available Not Available Not Available albuterol sulfate HFA 90 mcg/actuati on aerosol inhaler 08/11 completed Not Available Not Available Not Available norethindro ne (contracept mak) 0.35 mg tablet TAKE 1 TABLET BY MOUTH EVERY DAY 08/04 completed Not Available Not Available Not Available amoxicillin 875 mg-potassiu m clavulanate 125 mg tablet TAKE 1 TABLET BY MOUTH TWICE DAILY FOR 10 DAYS 03/16 completed Not Available Not Available Not Available active Not Available Not Avai lable Not Available Estarylla 0.25 mg-0.035 mg tablet Take 1 tablet every day by oral route. 11/30 completed Not Available Not Available Not Available Vitals Date Recorded Body height Body mass index (BMI) Body weight Systolic blood pressure Diastolic blood pressure Provider Name and Address Organization Details Last Updated DateTime 06/29/2024 170.18 cm 24.7 kg/m2 99738.59 g 110 mm[Hg] 70 mm[Hg] Ping Woods [facility] 09:45:37 Date Recorded Body height Body mass index (BMI) Body weight Systolic blood pressure Diastolic blood pressure Provider Name and Address Organization Details Last Updated DateTime 07/13/2024 170.18 cm 25.7 kg/m2 71217.15 g 122 mm[Hg] 73 mm[Hg] Radhika Slade [facility] 5 10:58:53 Date Recorded Body height Body mass index (BMI) Body weight Systolic blood pressure Diastolic blood pressure Provider Name and Address Organization Details Last Updated DateTime 07/27/2024 170.18 cm 25.5 kg/m2 26139.56 g 106 mm[Hg] 67 mm[Hg] Ping [facility] 5 09:47:12 Date Recorded Body weight Systolic blood pressure Diastolic blood pressure Provider Name and Address Organization Details Last Updated DateTime 08/03/2024 19475.7410 5 g 108 mm[Hg] 66 mm[Hg] Ping [facility] 08/03/2024 17:07:15 Date Recorded Body height Body mass index (BMI) Body weight Systolic blood pressure Diastolic blood pressure Provider Name and Address Organization Details Last Updated DateTime 08/11/2024 170.18 cm 25.7 kg/m2 23792.15 g 121 mm[Hg] 71 mm[Hg] Radhika Slade [facility] 5 09:34:03 Social History Question Answer Notes LastModified by Organizat ion Details LastModified Time Tobacco Smoking Status Never Smoker Jolene Andrewkoki [facility] 09/03/2022 10:59:28 Do You Have An Advance Directive? No Information not available 08/31/2021 What Is Your Level Of Alcohol Consumption? None [email or web address] Information not available 11/30/2021 If You Are , What Was Your Level Of Alcohol Consumption Prior To ? Occasional [email or web address] Information not available 09/03/2022 How Many Years Have You Consumed Alcohol? 4 Information not available 08/31/2021 Are You Blind Or Do You Have Difficulty Seeing? No Information not available 08/31/2021 What Is Your Level Of Caffeine Consumption? Occasional [email or web address] Information not available 05/04/2024 How Much Tobacco Do You Chew? None Information not available 08/31/2021 In The 14 Days Before Symptom Onset, Have You Had Close Contact With A Laboratory-confir med COVID-19 While That Case Was Ill? No Information not available 08/31/2021 In The 14 Days Before Symptom Onset, Have You Had Close Contact With A Person Who Is Under Investigation For COVID-19 While That Person Was Ill? No Information not available 08/31/2021 Have You Been To An Area Known To Be High Risk For COVID-19? No Information not available 08/31/2021 Are You Deaf Or Do You Have Serious Difficulty Hearing? No Information not available 08/31/2021 What Type Of Diet Are You Following? REGULAR Information not available 08/31/2021 What Is The Highest Grade Or Level Of School You Have Completed Or The Highest Degree You Have Received? 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 Yes Information not available 08/31/2021 Do You Use Protection During Sex? No Information not available 08/31/2021 Do You Use Your Seat Belt Or Car Seat Routinely? Yes Information not available 08/31/2021 Do You Have Smoke And Carbon Monoxide Detectors In Your Home? Yes Information not available 08/31/2021 How Much Tobacco Do You Smoke? No Information not available 08/31/2021 Do You Feel Stressed (tense, Restless, Nervous, Or Anxious, Or Unable To Sleep At Night)? [id number] Information not available 08/31/2021 Do You Use Any Illicit Or Recreational Drugs? No Information not available 08/31/2021 Do You Use Sunscreen Routinely? Yes Information not available 08/31/2021 Have You Used IV Drugs? No Information not available 08/31/2021 Sex: Unknown Functional Status Question Answer Note LastModified by Organizat ion Details LastModified Time Do you have difficulty walking or climbing stairs? No [email or web address] Information not available 09/03/2022 Are you able to walk? [email or web address] Information not available 08/31/2021 Are you able to care for yourself? Yes [email or web address] Information not available 09/03/2022 Do you have difficulty dressing or bathing? No [email or web address] Information not available 09/03/2022 What is your exercise level? Moderate Information not available 08/31/2021 Mental Status None recorded. Family History Relationship Description Onset Age of this Age Resolved Age Notes LastModified by Organization Details LastModified Time Paternal Grandfather Diabetes mellitus Not available 2021 11:18:05 Maternal Grandfather Diabetes mellitus Not available 2021 11:18:05 Paternal Grandmother Heart disease Not available 2021 11:18:05 Medical History Condition Response Other N Blood Transfusion N Dermatologic Disorders N Gestational Diabetes N Anxiety Disorder N Autoimmune disease N Arthritis N Polyps N Infertility N Acid Reflux (GERD) N Cancer N Varicosities N Stroke N Neurologic/Epilepsy N Fibromyalgia N Headaches N Kidney Disease N Heart Problems N Kidney or Bladder Problems N Eating Disorder N Art (IVF or FET) N Hepatitis/Liver Disease N No Past Medical History N Urinary Tract Infection N Asthma Y Trauma/Violence N Thrombophilias N Allergies (Food, seasonal, environmental ) Y Breast Cancer N Drug/Latex Allergies/Reactions N Lung Disease N Defects or Inherited Disease N Breast Problem N Hematologic disorders N Anesthesia Complications N History of STI N Deep Vein Thrombosis N Polycystic ovary syndrome N History of abnormal pap N Endometriosis N High Cholesterol N Thyroid Problems N GI Problems N Anemia N Psychiatric Illness N Ovarian Cancer N Diabetes N Pulmonary (TB, Asthma) N Eczema Y Abuse/Domestic Violence N Depression/ depression N Heart Disease N Pre-Eclampsia N Hypertension N Osteoporosis N Gynecological History Statement/Question Response Date of Last Mammogram 08/31/2021 Flow Light Date of LMP 11/04/2023 On BCP's at Conception? N Was last menstrual period normal Y STIs/STDs N HPV Vaccine Y Duration of Flow (days) 5 Current Control Method Age at First Child 27 Are cycles usually normal Y Frequency of Cycle (Q days) 27 Sexually Active? Y Menses Monthly Y Date of DEXA bone scan Age of first menstrual cycle 13 Date of Last Pap Smear 09/03/2022 Sexual Problems? N LMP Approximate N Obstetrics History GPAL:G 3 P 1 0 1 1 Type Value Full Term 1 Spontaneous 1 Living 1 Total 3 Past Encounters Encounter ID Performer Location Encounter Start Date Encounter Closed Date Diagnosis/Indication Diagnosis SNOMED-CT Code Diagnosis ICD10 Code Diagnosis Note [id number] SHADI Evans [facility] [address] [address] 08/31/2021 11:03:09 08/31/2021 13:45:58 Contraception care management 779764476 Z30.9 Gynecologi c examination 27961878 Z01.419 Take Calcium with Vitamin D 1200mg daily if not receiving in daily diet. It is strongly advised to have an annual flu shot and up can obtain at most pharmacies . If you have not had a TDap shot in the last 10 years you should obtain one as well. Discussed with patient & provided with informatio n regarding Gardisil vaccine to prevent the 4 strains for HPV that cause cervical cancer if under age 26. Encourage safe sexual practices, to use condoms and limit partners if not already in a monogamous relationsh ip. Do monthly self breast exams. Have mammogram yearly or every other year depending on family history. BRCA testing is now available for patients with strong genetic history of female cancer. If interested contact the office. Engage in daily exercise of low impact aerobic exercise 45-60 minutes 4-5 times weekly. Avoid tobacco and illicit drugs as well as using moderation with alcohol intake less than 1-2 8 oz beverages daily. This lifestyle behavior pattern will lead to less health conditions and longer life span. If BMI greater than 25 weight watchers or dietary consult advised. Patient received above instructio ns, and questions have been answered. If you have any questions please call or respond to this email. Patient was made aware of the patient portal and may obtain a paper copy of today's plan if desired. WWE, no issuesHapp y with OCP for control. No hx of DVT/PE, liver disease, cancer, stroke/AL, or migraine with aura per patient.Rx sent for 1 yearShe is considerin g in the near future, encouraged daily vitamin starting nowNo hx of abnormal papsLast pap in 2020, normal at outside office. Will have [place] obtain these records. Next pap due 2023 per guidelines STI testing declinedRT C in 1 year for WWE or sooner if needed [id number] Hammad Cuevas MD [facility] [address],[place] [address] 11/30/2021 13:54:23 11/30/2021 14:24:02 Routine care 835838385 Z34.91 [id number] Linette Brower CNM [facility] [address],[place] [address] 11/30/2021 14:21:30 11/30/2021 15:07:51 test positive 523296899 Z32.01 Risk factors addressed: Tobacco Cessation, Safe Sexual Practices, environmen cheko, work hazards, travel restrictio ns, seat belt use.Eat a health well balanced diet, avoid alcohol, tobacco, and street drugs.Enga ge in daily low impact exercise, avoid temperatur e extremes, and cat, rodent, and bird feces.Avoi d travel to areas where zika virus is a concern.Of fered cf/sma/nip t. Handouts given and discussed with patient.Ch ildbirth classes recommende d.New OB sheet given.If previous , counseling .Pt verbalizes that she understand s the importance of above instructio ns.All questions were answered.P atient reminded to have annual well woman examinatio n and address preventati ve healthcare . [id number] Shaye Horn MD [facility] [address],[place] [address] 01/08/2022 11:53:44 01/08/2022 12:40:26 screening 283277155 Z36.82 [id number] Shaye Horn MD [facility] [address],[place] [address] 01/08/2022 11:54:17 01/08/2022 13:40:30 Routine care 090394946 Z34.91 [id number] Hammad Cuevas MD [facility] [address],[place] [address] 02/07/2022 14:31:01 02/07/2022 16:04:50 Routine care 939600007 Z34.91 [id number] Shaye Horn MD [facility] [address],[place] [address] 03/05/2022 09:31:56 03/06/2022 11:25:48 screening for malformation 607204162 Z36.3 O44.42 Z3A.20 [id number] Shaye Horn MD [facility] [address],[place] [address] 03/05/2022 09:32:30 03/05/2022 17:11:37 Placenta previa 80551732 O44.02 [id number] MD Barbra Jeffries [address],[place] [address] 04/03/2022 10:05:47 04/03/2022 12:52:42 Routine care 049973529 Z34.91 [id number] MD Barbra Jeffries [address],[place] [address] 04/03/2022 10:42:52 04/03/2022 11:43:12 Placenta previa 44007572 O44.02 Z3A.24 [id number] MD Barbra Jeffries [address],[place] [address] 05/04/2022 09:43:44 05/04/2022 10:29:13 Routine care 620822799 Z34.91 [id number] MD Marisa [place] [address],[place] [address] 05/16/2022 11:40:23 05/16/2022 12:02:18 Routine care 026567926 Z34.91 Uterine si ze for dates discrepancy 229976302 O26.849 [id number] MD Barbra Jeffries [address],[place] [address] 05/30/2022 11:04:22 05/30/2022 12:00:58 [id number] MD Barbra Jeffries [address],[place] [address] 06/13/2022 10:26:15 06/13/2022 11:00:42 Uterine size for dates discrepancy 339369341 O26.843 Z3A.34 [id number] MD Marisa [place] [address],[place] [address] 06/13/2022 10:28:50 06/13/2022 14:47:21 Routine care 876202750 Z34.91 Arnol luis ch presentation 70714653 O32.1XX9 [id number] Shaye Horn MD [facility] [address],[place] [address] 06/27/2022 10:42:49 06/27/2022 11:13:48 Routine care 926578660 Z34.91 Breech presentation 6096 002 O32.1XX9 [id number] Shaye Horn MD [facility] [address],[place] [address] 07/04/2022 11:21:08 07/05/2022 15:04:50 Routine care 336051002 Z34.91 Breech presentation 6096 002 O32.1XX9 [id number] Shaye Horn MD [facility] [address],[place] [address] 07/11/2022 12:38:19 07/11/2022 14:45:42 Breech presentation 7207604 O32.1XX9 Routine an tenatal care 313050894 Z34.91 [id number] Shaye Honr MD [facility] [address],[place] [address] 07/25/2022 11:26:50 07/25/2022 14:19:03 Postoperative visit 081982449 Z09 [id number] Shaye Horn MD [facility] [address],[place] [address] 08/28/2022 16:24:40 08/29/2022 10:23:15 care 777856640 Z39.2 Initial pr escription of oral contraception 256026176 Z30.011 [id number] SHADI Evans [facility] [address],[place] [address] 09/03/2022 10:59:19 09/03/2022 11:41:08 Gynecologic examination 88212503 Z01.419 Take Calcium with Vitamin D 1200mg daily if not receiving in daily diet. It is strongly advised to have an annual flu shot and up can obtain at most pharmacies . If you have not had a TDap shot in the last 10 years you should obtain one as well. Discussed with patient & provided with informatio n regarding Gardisil vaccine to prevent the 4 strains for HPV that cause cervical cancer if under age 26. Encourage safe sexual practices, to use condoms and limit partners if not already in a monogamous relationsh ip. Do monthly self breast exams. Have mammogram yearly or every other year depending on family history. BRCA testing is now available for patients with strong genetic history of female cancer. If interested contact the office. Engage in daily exercise of low impact aerobic exercise 45-60 minutes 4-5 times weekly. Avoid tobacco and illicit drugs as well as using moderation with alcohol intake less than 1-2 8 oz beverages daily. This lifestyle behavior pattern will lead to less health conditions and longer life span. If BMI greater than 25 weight watchers or dietary consult advised. Patient received above instructio ns, and questions have been answered. If you have any questions please call or respond to this email. Patient was made aware of the patient portal and may obtain a paper copy of today's plan if desired. WWE, no issuess/p c/s 07/16/22 for breech. Doing well, breastfeed ing. Denies any symptoms of depression /anxiety.B C - POP. Happy with this methodno hx of abnormal papspap done todaySTI testing declinedRT C in 1 year or sooner if needed Contracept ion care management 310238034 Z30.9 [id number] Hammad Cuevas MD [facility] [address],[facility] [address] 07/04/2023 12:20:27 07/04/2023 13:59:21 Uterine size for dates discrepancy 650922377 O26.843 Z3A.34 [id number] MD Barbra Unger [address],[facility] [address] 07/15/2023 12:18:11 07/15/2023 13:00:06 screening 903430693 Z36.87 O36.8910 Z3A.01 [id number] MD Barbra Unger [address],[place] [address] 07/29/2023 15:40:21 07/29/2023 16:17:44 [id number] Hammad Cuevas MD [facility] [address],[place] [address] 07/29/2023 15:40:45 07/29/2023 21:27:49 [id number] Hammad Cuevas MD [facility] [address],[place] [address] 08/05/2023 14:12:22 08/05/2023 15:28:48 Amenorrhea 04635784 N91.2 this patient is a 28-year-ol d female who presents for amenorrhea . She is a positive test. Ultrasound revealed a 1st trimester gestation. Patient has no complaints . We talked about early care. Talked about genetic screening. We talked about her ultrasound results. We talked about the 12 week ultrasound that has genetic screening components . She was given recommenda tions on exercise, diet, over-the-c ounter medication s. We reviewed her obstetric history. We reviewed her medical history. We reviewed her social history. She will begin routine care at her next visit. for breech. Discussed risk [id number] Hammad Cuevas MD [facility] [address],[place] [address] 08/28/2023 14:26:12 08/28/2023 14:51:03 [id number] Hammad Cuevas MD [facility] [address],[place] [address] 08/28/2023 14:26:33 08/29/2023 11:32:13 Missed miscarriage 01952999 O02.1 This patient is a 28 y/o female who presents for [missed/th reatened/i ncomplete] discussed the etiology, frequency, natural history, and treatment of this condition. Spent more than 40 minutes talking about the above, as well as, her history, the particular findings of her case, and detail of her the treatment options. We discussed the risk benefits of each option. She understand s the risk include infection and hemorrhage . She understand s a D&C also holds the risk of injury. She understand s that waiting can result in a septic that is even more difficult to treat. We talked about signs and symptoms of infection. after lengthy discussion about treatment options. We agreed to prescribe Cytotec. She may take the medication . She is yet undecided. She will contact us if she wants any other type of treatment. We spent over 40 minutes face-to-fa ce. More than 50% was counseling . She is given detailed instructio ns on the use of Cytotec and precaution s about bleeding. [id number] MD Barbra Unger [address] [address],[place] [address] 1 09/05/2023 09:28:19 09/05/2023 10:03:43 Missed miscarriage [id number] O02.1 Z3A.00 This patient is a 28 y/o female who presents for [missed/th reatened/i ncomplete] discussed the etiology, frequency, natural history, and treatment of this condition. Spent more than 40 minutes talking about the above, as well as, her history, the particular findings of her case, and detail of her the treatment options. We discussed the risk benefits of each option. She understand s the risk include infection and hemorrhage . She understand s a D&C also holds the risk of injury. She understand s that waiting can result in a septic that is even more difficult to treat. We talked about signs and symptoms of infection. after lengthy discussion about treatment options. We agreed to prescribe Cytotec. She may take the medication . She is yet undecided. She will contact us if she wants any other type of treatment. We spent over 40 minutes face-to-fa ce. More than 50% was counseling . She is given detailed instructio ns on the use of Cytotec and precaution s about bleeding. [id number] Hammad Cuevas MD [facility] [address],[place] [address] 1 09/06/2023 13:47:02 09/07/2023 11:34:03 Missed miscarriage [id number] O02.1 Z3A.00 this patient is a 28-year-ol d female who presents for follow-up on missed A/B. She was treated with Cytotec. She appeared to have a completed miscarriag e based on her symptoms and descriptio n of the events after taking Cytotec. Continued to have a little bit of bleeding. We repeated ultrasound . There may be a rim of residual retained products conception . It is difficult to see. There is some also some debris and clot within the intrauteri ne cavity. The results were equivocal. We agreed to repeat ultrasound in 1 week and to follow-up after that. We spent 15 minutes face-to-fa ce. More than 50% was counseling . [id number] Hammad Cuevas MD [facility] [address],[place] [address] 09/12/2023 11:57:02 09/12/2023 12:31:38 Retained products of conception [id number] O72.2 [id number] Hammad Cuveas MD [facility] [address],[place] [address] 09/12/2023 11:57:22 09/13/2023 10:22:56 Retained products of conception [id number] O72.2 This patient is a 28-year-ol d female with retained products conception . We agreed to perform suction D&C. She understand s the risks, benefits, and alternativ es. She is completed the informed consent process and is ready to proceed. [id number] Hammad Cuevas MD [facility] [address],[place] [address] 09/19/2023 11:26:43 09/19/2023 12:24:03 Missed miscarriage [id number] O02.1 Z3A.00 this patient presents for postop follow-up. She is 1 week postop from a suction D&C. She is recovering normally. Her bleeding is minimal. She has no foul-smell ing vaginal discharge. She denies any nausea, vomiting, fever, chills. We discussed contracept ion. We discussed future . D&C was for missed A/B. test is negative today. [id number] Hammad Cuevas MD [facility] [address],[place] [address] 01/06/2024 09:20:55 01/06/2024 09:53:04 [id number] Hammad Cuevas MD [facility] [address],[place] [address] 1 01/06/2024 09:21:58 01/06/2024 11:10:32 Amenorrhea [id number] N91.2 this patient is a 28-year-ol d female who presents for amenorrhea . She is a positive test. Ultrasound revealed a 1st trimester gestation. Patient has no complaints . We talked about early care. Talked about genetic screening. We talked about her ultrasound results. We talked about the 12 week ultrasound that has genetic screening components . She was given recommenda tions on exercise, diet, over-the-c ounter medication s. We reviewed her obstetric history. We reviewed her medical history. We reviewed her social history. She will begin routine care at her next visit. for breech. Discussed risk [id number] Hammad Cuevas MD [facility] [address],[place] [address] 1 02/10/2024 09:25:50 02/10/2024 10:12:39 screening [id number] Z36.89 Z3A.12 [id number] Hammad Cuevas MD [facility] [address],[place] [address] 02/10/2024 09:26:44 02/10/2024 11:08:30 Routine care [id number] Z34.91 [id number] Hammad Cuevas MD [facility] [address],[place] [address] 1 03/16/2024 10:03:41 03/16/2024 11:02:17 Routine care [id number] Z34.91 [id number] Hammad Cuevas MD [facility] [address],[place] [address] 1 04/09/2024 14:50:05 04/09/2024 16:16:46 screening for malformation [id number] Z36.3 Z3A.20 [id number] Hammad Cuevas MD [facility] [address],[place] [address] 1 04/09/2024 14:51:11 04/09/2024 16:37:51 Routine care [id number] Z34.91 [id number] MD Barbra Unger [address],[place] [address] 1 05/04/2024 09:29:30 05/04/2024 10:30:52 Routine care [id number] Z34.91 [id number] MD Barbra Unger [address],[place] [address] 1 06/01/2024 09:20:46 06/01/2024 17:14:46 Routine care [id number] Z34.91 [id number] MD Barbra Unger [address],[place] [address] 1 06/18/2024 09:23:15 06/18/2024 10:10:15 Routine care [id number] Z34.91 [id number] MD Barbra Unger [address],[place] [address] 1 06/29/2024 09:35:08 06/29/2024 10:33:35 section following previous section [id number] O34.219 [id number] MD Barbra Unger [address],[place] [address] 1 07/13/2024 10:39:15 07/13/2024 11:48:23 section following previous section [id number] O34.219 [id number] MD Barbra Unger [address],[place] [address] 1 07/27/2024 09:33:34 07/27/2024 10:22:05 Routine care [id number] Z34.91 [id number] MD Barbra Unger [address],[place] [address] 1 08/03/2024 15:33:11 08/03/2024 17:50:24 care status [id number] Z34.83 [id number] Genia Moreno CNM [facility] [address],[place] [address] 1 08/11/2024 09:24:00 08/11/2024 09:50:07 Gestation period, 38 weeks [id number] Z3A.38 Health Concerns Section Related Observation LastModified by Organization Detai ls LastModified Time None Recorded Concern Status LastModified by Organization Details LastModified Time None Recorded Advance Directives Directive N: Payers Encounter Date Sequence Insurance Name Policy Number Policy Walker Covered Member ID Walker Member ID Guarantor Name 06/29/2024 1 [facility] [id number] Emilie Ramirez [id number] Emilie Ramirez 07/13/2024 1 [facility] [id number] Emilie Ramirez [id number] Emilie Ramirez 07/27/2024 1 [facility] [id number] Emilie Ramirez [id number] Emilie Ramirez 08/03/2024 1 [facility] [id number] Emilie Ramirez [id number] Emilie Ramirez 08/11/2024 1 [facility] [id number] Emilie Ramirez [id number] Emilie Ramirez OBGyn Episode Ob Episode Information Episode Created Date Number of Fetuses Patient Bloodtype Patient rh Status Prepregnancy Weight lbs Domestic Partner Domestic Partner Phone Father Name Operations Welder Status 01/09/20 22 1 O Positive 126 CLOSED Fetus Data First Name Last Name Admitted to NICU Weight (g) Sex Living Outcome Pediatric Complications Fetus ID Race Codes Race Delivery Type 3090.09 55 F true Full Term [id number] Primary Problems Problem Notes AFP WNL Problem Name Start Date End Date Resolution Snomed Code Not e Breech presentation [id number] CS 4/3 unless no longer breech Placenta previa SELFRESOLVED [id number] m arginal- US q4, pelvic rest RESOLVED!! Uterine size for dates discrepancy 05/16/2022 [id number] Geo Calculation Initial Geo Date Initial Exam Date Initial Exam Provider Initial Ultrasound Date Last Menstrual Period Date Ultra Sound Weeks Gestation 07/22/2022 01/08/2022 11/30/2021 10/04/2021 6 Eighteen To Twenty Week Geo Update Ultra Sound Date Fundal Height At Umbil Quickening Date Ultra Sound Latest Weeks Gestation Final Geo Confirmed By Final Geo Confirmed Date Final Geo Date Ultra Sound Latest Days Gestation 0 [email or web address] 01/08/2022 07/23/19 23 0 Pre-analia Flowsheet Flowsheet Date 01/08/2022 Gavin Score Blood Edema Fundus Height Fundus Units Glucose Ketones Leukocytes Nitrite Labor Signs Protein Cervic Dilation Cervic Effacement Cervic Station neg none none trace Type Weight in lbs Pre/Post Dialysis Refused Weight 126.77103552829 BP Diastolic BP Location Tested BP Systolic BP Type 77 123 Fetus Heart Rate Present A 160 Fetus Movement A No Comments Emilie is a G1 at 12.1 for pre care. her history is noncontributory. Has had COVID vaccines, will get booster. Will get flu shot also. Labs and NIPT today. AFP next visit. Routine care. Flowsheet Date 02/07/2022 Gavin Score Blood Edema Fundus Height Fundus Units Glucose Ketones Leukocytes Nitrite Labor Signs Protein Cervic Dilation Cervic Effacement Cervic Station 12 Type Weight in lbs Pre/Post Dialysis Refused Weight 134.291837933257 BP Diastolic BP Location Tested BP Systolic BP Type 79 R arm 125 sitting Fetus Heart Rate Present A 134 Fetus Movement Comments no problems, no concerns, AF P today Flowsheet Date 03/05/2022 Gavin Score Blood Edema Fundus Height Fundus Units Glucose Ketones Leukocytes Nitrite Labor Signs Protein Cervic Dilation Cervic Effacement Cervic Station Type Weight in lbs Pre/Post Dialysis Refused BP Diastolic BP Location Tested BP Systolic BP Type Fetus Heart Rate Present Fetus Movement Comments Flowsheet Date 03/05/2022 Gavin Score Blood Edema Fundus Height Fundus Units Glucose Ketones Leukocytes Nitrite Labor Signs Protein Cervic Dilation Cervic Effacement Cervic Station neg none none trace Type Weight in lbs Pre/Post Dialysis Refused Weight 138.304629971829 BP Diastolic BP Location Tested BP Systolic BP Type 78 126 Fetus Heart Rate Present A 135 Fetus Movement A Yes Comments Doing well, feeling fine. No bleeding. US today anatomy complete and wnl. Does have marginal previa, discussed, precautions given, pelvic rest. Repeat US 4 weeks. Any bleeding to L and D. Flowsheet Date 04/03/2022 Gavin Score Blood Edema Fundus Height Fundus Units Glucose Ketones Leukocytes Nitrite Labor Signs Protein Cervic Dilation Cervic Effacement Cervic Station neg none 25 none trace Type Weight in lbs Pre/Post Dialysis Refused Weight 145.3570357804 BP Diastolic BP Location Tested BP Systolic BP Type 80 125 Fetus Heart Rate Present A 155 Fetus Movement A Yes Comments Doing well. No bleeding, no concerns. GCT next. US today normal growth and US no longer previa or LL- 2.7cm from os. Off pelvic rest. Discuss Tdap next visit. Flowsheet Date 04/03/2022 Gavin Score Blood Edema Fundus Height Fundus Units Glucose Ketones Leukocytes Nitrite Labor Signs Protein Cervic Dilation Cervic Effacement Cervic Station Type Weight in lbs Pre/Post Dialysis Refused BP Diastolic BP Location Tested BP Systolic BP Type Fetus Heart Rate Present Fetus Movement Comments Flowsheet Date 05/04/2022 Gavin Score Blood Edema Fundus Height Fundus Units Glucose Ketones Leukocytes Nitrite Labor Signs Protein Cervic Dilation Cervic Effacement Cervic Station neg none 26 none trace Type Weight in lbs Pre/Post Dialysis Refused Weight 150.979109923067 BP Diastolic BP Location Tested BP Systolic BP Type 82 120 Fetus Heart Rate Present A 135 Fetus Movement A Yes Comments Doing well, no concerns. GCT today. Discussed Tdap, will do. Watch S<D. Flowsheet Date 05/16/2022 Gavin Score Blood Edema Fundus Height Fundus Units Glucose Ketones Leukocytes Nitrite Labor Signs Protein Cervic Dilation Cervic Effacement Cervic Station neg none 27 none trace Type Weight in lbs Pre/Post Dialysis Refused Weight 155.11781205725 BP Diastolic BP Location Tested BP Systolic BP Type 74 110 Fetus Heart Rate Present A 130 Fetus Movement A Yes Comments Doing well, good FM. GCT wnl . Doing Tdap this week. Will add US for S<D. Flowsheet Date 05/30/2022 Gavin Score Blood Edema Fundus Height Fundus Units Glucose Ketones Leukocytes Nitrite Labor Signs Protein Cervic Dilation Cervic Effacement Cervic Station neg none 30 none trace Type Weight in lbs Pre/Post Dialysis Refused Weight 157.223426742457 BP Diastolic BP Location Tested BP Systolic BP Type 81 125 Fetus Heart Rate Present A 140 Fetus Movement A Yes Comments Doing well. NO concerns. Lab or precautions. US next. Tdap done. Working on ped, Prereg scheduled. Flowsheet Date 06/13/2022 Gavin Score Blood Edema Fundus Height Fundus Units Glucose Ketones Leukocytes Nitrite Labor Signs Protein Cervic Dilation Cervic Effacement Cervic Station Type Weight in lbs Pre/Post Dialysis Refused BP Diastolic BP Location Tested BP Systolic BP Type Fetus Heart Rate Present Fetus Movement Comments Flowsheet Date 06/13/2022 Gavin Score Blood Edema Fundus Height Fundus Units Glucose Ketones Leukocytes Nitrite Labor Signs Protein Cervic Dilation Cervic Effacement Cervic Station neg trace none trace Type Weight in lbs Pre/Post Dialysis Refused Weight 158.655822015969 BP Diastolic BP Location Tested BP Systolic BP Type 75 118 Fetus Heart Rate Present A 150 Fetus Movement A Yes Comments Doing well. US today 53% but breech! We discussed scheduled CS vs ECV, RBA, chance of success. She will consider and discuss more next visit. Probably informal US next visit to confirm presentation. GBS next visit. Flowsheet Date 06/27/2022 Gavin Score Blood Edema Fundus Height Fundus Units Glucose Ketones Leukocytes Nitrite Labor Signs Protein Cervic Dilation Cervic Effacement Cervic Station neg trace 31 none trace 0cm 20% -3 Type Weight in lbs Pre/Post Dialysis Refused Weight 163.812167541798 BP Diastolic BP Location Tested BP Systolic BP Type 81 126 Fetus Heart Rate Present A 155 Fetus Movement A Yes Comments Doing fine. Still breech. De cided against ECV. Will schedule CS and cancel if baby flips. GBS done and discussed. Flowsheet Date 07/04/2022 Gavin Score Blood Edema Fundus Height Fundus Units Glucose Ketones Leukocytes Nitrite Labor Signs Protein Cervic Dilation Cervic Effacement Cervic Station neg trace 34 none trace Type Weight in lbs Pre/Post Dialysis Refused Weight 163.172550501754 BP Diastolic BP Location Tested BP Systolic BP Type 80 126 Fetus Heart Rate Present A 130 Fetus Movement A Yes Comments Doing well. GBS neg. CS sche duled 4/3, baby does not seem to be moving from breech. Great FM though. Flowsheet Date 07/11/2022 Gavin Score Blood Edema Fundus Height Fundus Units Glucose Ketones Leukocytes Nitrite Labor Signs Protein Cervic Dilation Cervic Effacement Cervic Station neg none 34 none trace Type Weight in lbs Pre/Post Dialysis Refused Weight 164.79628274696 BP Diastolic BP Location Tested BP Systolic BP Type 81 130 Fetus Heart Rate Present A 140 Fetus Movement A Yes Comments Doing fine. CS Saturday. Conse nted for CS, discussed RBA. Precautions given. Flowsheet Date 07/16/2022 Gavin Score Blood Edema Fundus Height Fundus Units Glucose Ketones Leukocytes Nitrite Labor Signs Protein Cervic Dilation Cervic Effacement Cervic Station Type Weight in lbs Pre/Post Dialysis Refused BP Diastolic BP Location Tested BP Systolic BP Type Fetus Heart Rate Present Fetus Movement Comments Flowsheet Date 07/25/2022 Gavin Score Blood Edema Fundus Height Fundus Units Glucose Ketones Leukocytes Nitrite Labor Signs Protein Cervic Dilation Cervic Effacement Cervic Station Type Weight in lbs Pre/Post Dialysis Refused Weight 145.8130947738 BP Diastolic BP Location Tested BP Systolic BP Type 86 146 78 142 Fetus Heart Rate Present Fetus Movement Comments Menstrual History Last Menstrual Date Menses Monthly On Bcp Conception Prior Menses Frequency Hcg Plus Date Menarche Onset Age 0610/04/2021 Genetic Screening And Infection History Question Response Note Mental Retardation/Autism false Patient's Age Will Be 35 Years Or Older At Estim ated Date of Delivery false Thalassemia (Malay, German, Mediterranean, Or Background): MCV < 80 false Neural Tube Defect (Meningomyelocele, Spina Bifi da, Or Anencephaly) false Congenital Heart Defect false Down Syndrome false Johnny-Sachs (eg, Restorationism, Cajun, Emirati-Unity) f alse Agnieszka Disease false Sickle Cell Disease Or Trait () false Hemophilia Or Other Blood Disorders false Muscular Dystrophy false Cystic Fibrosis false Jayson's Chorea false Intellectual Disability/Autism false If Yes, Was Person Tested For Fragile X? false Other Inherited Genetic Or Chromosomal Disorder false Maternal Metabolic Disorder (eg, Type 1 Diabetes , PKU) false Patient Or Baby's Father Had A Child With Defects Not Listed Above false Recurrent Loss, Or A Stillbirth false Medications (including Suppl ements, Vitamins, Herbs, OTC Drugs), Illicit/Recreational Drugs, Alcohol false If Yes, Agent(s) And Strength/Dosage false Any Other Genetic History false Live With Someone With TB Or Exposed To TB false Patient Or Partner Has History Of Genital Herpes false Rash Or Viral Illness Since Last Menstrual Perio d false History Of STD, Gonorrhea, Chlamydia, HPV, Syphi lis false Other Infection History false History of HIV false History of Hepatitis false Prior GBS-infected child false Hemoglobinopathy Or Carrier false Other Structural Defect false Recent Travel History Outside of Country false Delivery Information Delivery Date Delivery Type Labor Anesthesia Weeks Gestation Incision Type Labor Labor Length Hrs Delivered By Post Complications Tubal Sterilization Discharge Date Comments 3 None Regional-Sp inal 39.1 Low Transvers e true Shaye Horn MD Breech Discharge Information Feeding Method Contraceptive Method Maternal HG B and HCT Levels Ob Episode Information Episode Created Date Number of Fetuses Patient Bloodtype Patient rh Status Prepregnancy Weight lbs Domestic Partner Domestic Partner Phone Father Name Operations Welder Status 01/06/20 24 1 DELETED Geo Calculation Initial Geo Date Initial Exam Date Initial Exam Provider Initial Ultrasound Date Last Menstrual Period Date Ultra Sound Weeks Gestation 0 Eighteen To Twenty Week Geo Update Ultra Sound Date Fundal Height At Umbil Quickening Date Ultra Sound Latest Weeks Gestation Final Geo Confirmed By Final Geo Confirmed Date Final Geo Date Ultra Sound Latest Days Gestation 0 0 Menstrual History Last Menstrual Date Menses Monthly On Bcp Conception Prior Menses Frequency Hcg Plus Date Menarche Onset Age Delivery Information Delivery Date Delivery Type Labor Anesthesia Weeks Gestation Incision Type Labor Labor Length Hrs Delivered By Post Complications Tubal Sterilization Discharge Date Comments 4 monosomy Discharge Information Feeding Method Contraceptive Method Maternal HG B and HCT Levels Ob Episode Information Episode Created Date Number of Fetuses Patient Bloodtype Patient rh Status Prepregnancy Weight lbs Domestic Partner Domestic Partner Phone Father Name Operations Welder Status 02/10/20 24 1 O Positive 133 Titi Ramirez OPEN Fetus Data First Name Last Name Admitted to NICU Weight (g) Sex Living Outcome Pediatric Complications Fetus ID Race Codes Race Delivery Type [id number] Problems Problem Notes Problem Name Start Date End Date Resolution Snomed Code Not e Deliveries by 04 Done for breech, REPEAT Geo Calculation Initial Geo Date Initial Exam Date Initial Exam Provider Initial Ultrasound Date Last Menstrual Period Date Ultra Sound Weeks Gestation 02/10/2024 01/06/2024 11/04/2023 7 Eighteen To Twenty Week Geo Update Ultra Sound Date Fundal Height At Umbil Quickening Date Ultra Sound Latest Weeks Gestation Final Geo Confirmed By Final Geo Confirmed Date Final Geo Date Ultra Sound Latest Days Gestation 0 [email or web address] 02/10/2024 08/22/19 25 0 Pre-analia Flowsheet Flowsheet Date 02/10/2024 Gavin Score Blood Edema Fundus Height Fundus Units Glucose Ketones Leukocytes Nitrite Labor Signs Protein Cervic Dilation Cervic Effacement Cervic Station Type Weight in lbs Pre/Post Dialysis Refused 135.34799408115 BP Diastolic BP Location Tested BP Systolic BP Type 85 L arm 123 sitting Fetus Heart Rate Present Fetus Movement A Yes Comments this patient is a 28year-old multiparous female at 12 weeks' gestation who presents for initial care. She has a history of term vaginal births. Her medical, surgical, obstetric history is unremarkable. She is vaccinated. She was given precautions recommendations for . We talked about vaccines in . Talked about care in detail. She is having genetic testing. She had a normal 12 week ultrasound. To begin routine care. Flowsheet Date 03/16/2024 Gavin Score Blood Edema Fundus Height Fundus Units Glucose Ketones Leukocytes Nitrite Labor Signs Protein Cervic Dilation Cervic Effacement Cervic Station Type Weight in lbs Pre/Post Dialysis Refused 143.812618590033 BP Diastolic BP Location Tested BP Systolic BP Type 70 L arm 109 sitting Fetus Heart Rate Present A 145 Fetus Movement A Yes Comments no complaints, no problems, routine care, no contractions, no vaginal bleeding, no loss of fluid, no cramping Flowsheet Date 04/09/2024 Gavin Score Blood Edema Fundus Height Fundus Units Glucose Ketones Leukocytes Nitrite Labor Signs Protein Cervic Dilation Cervic Effacement Cervic Station Type Weight in lbs Pre/Post Dialysis Refused BP Diastolic BP Location Tested BP Systolic BP Type Fetus Heart Rate Present Fetus Movement Comments Flowsheet Date 04/09/2024 Gavin Score Blood Edema Fundus Height Fundus Units Glucose Ketones Leukocytes Nitrite Labor Signs Protein Cervic Dilation Cervic Effacement Cervic Station Type Weight in lbs Pre/Post Dialysis Refused 146.941404220222 BP Diastolic BP Location Tested BP Systolic BP Type 75 L arm 116 sitting Fetus Heart Rate Present A 145 Fetus Movement A Yes Comments no complaints, no problems, routine care, no contractions, no vaginal bleeding, no loss of fluid, no cramping Flowsheet Date 05/04/2024 Gavin Score Blood Edema Fundus Height Fundus Units Glucose Ketones Leukocytes Nitrite Labor Signs Protein Cervic Dilation Cervic Effacement Cervic Station neg none Type Weight in lbs Pre/Post Dialysis Refused 149.184268809054 BP Diastolic BP Location Tested BP Systolic BP Type 69 105 Fetus Heart Rate Present A 134 Fetus Movement A Yes Comments no complaints, no problems, routine care, no contractions, no vaginal bleeding, no loss of fluid, no crampingw6 Flowsheet Date 06/01/2024 Gavin Score Blood Edema Fundus Height Fundus Units Glucose Ketones Leukocytes Nitrite Labor Signs Protein Cervic Dilation Cervic Effacement Cervic Station 28 cm Type Weight in lbs Pre/Post Dialysis Refused 158.729410728386 BP Diastolic BP Location Tested BP Systolic BP Type 72 L arm 111 sitting Fetus Heart Rate Present A 140 Present Fetus Movement A Yes Comments no complaints, no problems, routine care, no contractions, no vaginal bleeding, no loss of fluid, no cramping Flowsheet Date 06/18/2024 Gavin Score Blood Edema Fundus Height Fundus Units Glucose Ketones Leukocytes Nitrite Labor Signs Protein Cervic Dilation Cervic Effacement Cervic Station 30 cm Type Weight in lbs Pre/Post Dialysis Refused Weight 159.265393053667 BP Diastolic BP Location Tested BP Systolic BP Type 72 L arm 119 sitting Fetus Heart Rate Present A 144 Present Fetus Movement A Yes Comments no complaints, no problems, routine care, no contractions, no vaginal bleeding, no loss of fluid, no cramping Flowsheet Date 06/29/2024 Gavin Score Blood Edema Fundus Height Fundus Units Glucose Ketones Leukocytes Nitrite Labor Signs Protein Cervic Dilation Cervic Effacement Cervic Station Type Weight in lbs Pre/Post Dialysis Refused Weight 158.642828809123 BP Diastolic BP Location Tested BP Systolic BP Type 70 L arm 110 sitting Fetus Heart Rate Present A 144 Present Fetus Movement A Yes Comments no complaints, no problems, routine care, no contractions, no vaginal bleeding, no loss of fluid, no cramping Flowsheet Date 07/13/2024 Gavin Score Blood Edema Fundus Height Fundus Units Glucose Ketones Leukocytes Nitrite Labor Signs Protein Cervic Dilation Cervic Effacement Cervic Station neg trace Type Weight in lbs Pre/Post Dialysis Refused Weight 164.203696796688 BP Diastolic BP Location Tested BP Systolic BP Type 73 122 Fetus Heart Rate Present Fetus Movement A Yes Comments Patient states that is havin g some swelling. no complaints, no problems, routine care, no contractions, no vaginal bleeding, no loss of fluid, no cramping Flowsheet Date 07/27/2024 Gavin Score Blood Edema Fundus Height Fundus Units Glucose Ketones Leukocytes Nitrite Labor Signs Protein Cervic Dilation Cervic Effacement Cervic Station Type Weight in lbs Pre/Post Dialysis Refused Weight 163.249301651405 BP Diastolic BP Location Tested BP Systolic BP Type 67 L arm 106 sitting Fetus Heart Rate Present A 160 Fetus Movement A Increased Comments no complaints, no problems, routine care, no contractions, no vaginal bleeding, no loss of fluid, no cramping Flowsheet Date 08/03/2024 Gavin Score Blood Edema Fundus Height Fundus Units Glucose Ketones Leukocytes Nitrite Labor Signs Protein Cervic Dilation Cervic Effacement Cervic Station 37 cm Type Weight in lbs Pre/Post Dialysis Refused [id number] BP Diastolic BP Location Tested BP Systolic BP Type 66 108 Fetus Heart Rate Present A 134 Present Fetus Movement A Yes Comments no complaints, no problems, routine care, no contractions, no vaginal bleeding, no loss of fluid, no cramping Flowsheet Date 08/11/2024 Gavin Score Blood Edema Fundus Height Fundus Units Glucose Ketones Leukocytes Nitrite Labor Signs Protein Cervic Dilation Cervic Effacement Cervic Station neg trace Type Weight in lbs Pre/Post Dialysis Refused Weight [id number] BP Diastolic BP Location Tested BP Systolic BP Type 71 121 Fetus Heart Rate Present Fetus Movement A Yes Comments Patient is having some swell ing. c/s on saturday, +FM will schedule post op and pp visit, precautions and education f/u one week Menstrual History Last Menstrual Date Menses Monthly On Bcp Conception Prior Menses Frequency Hcg Plus Date Menarche Onset Age 0711/04/2023 false false Delivery Information Delivery Date Delivery Type Labor Anesthesia Weeks Gestation Incision Type Labor Labor Length Hrs Delivered By Post Complications Tubal Sterilization Discharge Date Comments Discharge Information Feeding Method Contraceptive Method Maternal HG B and HCT Levels Ob Episode Information Episode Created Date Number of Fetuses Patient Bloodtype Patient rh Status Prepregnancy Weight lbs Domestic Partner Domestic Partner Phone Father Name Operations Welder Status 02/10/20 24 1 CLOSED Fetus Data First Name Last Name Admitted to NICU Weight (g) Sex Living Outcome Pediatric Complications Fetus ID Race Codes Race Delivery Type , Spontane ous [id number] Geo Calculation Initial Geo Date Initial Exam Date Initial Exam Provider Initial Ultrasound Date Last Menstrual Period Date Ultra Sound Weeks Gestation 0 Eighteen To Twenty Week Geo Update Ultra Sound Date Fundal Height At Umbil Quickening Date Ultra Sound Latest Weeks Gestation Final Geo Confirmed By Final Geo Confirmed Date Final Geo Date Ultra Sound Latest Days Gestation 0 0 Menstrual History Last Menstrual Date Menses Monthly On Bcp Conception Prior Menses Frequency Hcg Plus Date Menarche Onset Age Delivery Information Delivery Date Delivery Type Labor Anesthesia Weeks Gestation Incision Type Labor Labor Length Hrs Delivered By Post Complications Tubal Sterilization Discharge Date Comments 4 Discharge Information Feeding Method Contraceptive Method Maternal HG B and HCT Levels
--- OUTSIDE RECORDS SUMMARY | 2024-08-13 10:29 | XMS_ITS | Clinical Summary ---
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 Gender Identity Not on file Sexual Orientation Not on file Plan of Treatment Health Maintenance Due Date Last Done Comments Hepatitis C Virus (HCV) Screening 1996 TdaP Immunization 1996 Hepatitis B Immunization (1 of 3 - 19+ 3-dose series) 02/27/2015 Pap Smear 02/27/2017 Influenza Immunization (#1) 2023 SARS-COV-2 Immunization ( season) 2023 Respiratory Syncytial Virus (RSV) Immunization (Adult) (1 - 1-dose 75+ series) 02/27/2071 Meningococcal Immunization (ACWY) Aged Out No longer eligible based on patient's age to complete this topic Pneumococcal Immunization Combined Aged Out No longer eligible based on patient's age to complete this topic Rotavirus Immunization Aged Out No lo nger eligible based on patient's age to complete this topic
--- OUTSIDE RECORDS SUMMARY | 2024-08-13 10:29 | XMS_ITS | Clinical Summary ---
Author Organization [facility] Address [address] [place] [address] Care Team Providers Care Assistant Manager Bilingual Name Role Phone Unavailable Primary Care Provider Unavailabl e Source Comments [facility],non-owned Affiliates and Associated Physician Practices is amultiple site organization consisting of ambulatory clinics and hospital sitesin [place], [place], [place] and [place]. This disclosure is being madepursuant to the Care Everywhere program and may not contain all information available regarding this patient. Last updated 18.[facility] [employer] Social History Tobacco Use Types Packs/Day Years Used Date Smoking Tobacco: Never Assessed Comments Unknown Sex and Gender Information Value Date Recorded Sex Assigned at Not on file Legal Sex Female 9:15 AM CDT Gender Identity Not on file Sexual Orientation Not on file Plan of Treatment Health Maintenance Due Date Last Done Comments PAP SMEAR 1996 HIV SCREENING 02/27/2011 HEPATITIS C SCREENING 02/23/2014 DTAP/TDAP/TD VACCINES (1 - Tdap) 02/27/2015 HEPATITIS B VACCINE (1 of 3 - 19+ 3-dose series) 02/27/2015 COVID-19 VACCINE (3 - 2023-2 5 season) 2023 07/31/2020, 07/10/2020 DEPRESSION SCREENING 04/15/2024 INFLUENZA VACCINE (Season Ended) 2024 03/30/2022, 03/07/2020 ZOSTER VACCINE (1 of 2) 02/27/2046 HIB VACCINE Aged Out No longer eligi ble based on patient's age to complete this topic HPV VACCINE Aged Out No longer eligi ble based on patient's age to complete this topic MENINGOCOCCAL (Group B) VACCINE SHARED DECISION-MAKING Aged Out No longer eligible based on patient's age to complete this topic MENINGOCOCCAL GROUPS A/C/Y/W VACCINE Aged Out No longer eligible b ased on patient's age to complete this topic PNEUMOCOCCAL VACCINE Aged Out No long er eligible based on patient's age to complete this topic Insurance * Guarantor: MICHELLE CHENEY Type Relation to Patient Date of Phone Billing Address Personal/Family [phone] [facility] SELF PAY NO INSURANCE Member Subscriber Plan / Payer (Ef fective for All Dates) Name:Michelle Cheney Member ID:Not on file Relation to Subscriber:Not on file Name:MICHELLE CHENEY Subscriber ID:Not on file Address: [address] [place] [address] Payer ID:Not on file Group ID:Not on file Type:Self Pay Address: [facility] * Guarantor: MICHELLE CHENEY Type Relation to Patient Date of Phone Billing Address Personal/Family [address] [place] [address] HEALTH CARE SELF PAY NO INSURANCE Member Subscriber Plan / Payer (Ef fective for All Dates) Name:Michelle Cheney Member ID:Not on file Relation to Subscriber:Not on file Name:MICHELLE CHENEY Subscriber ID:Not on file Address: [address] [place] [id number] Payer ID:Not on file Group ID:Not on file Type:Self Pay Address: [place], [place] * Guarantor: MICHELLE CHENEY Account Type Relation to Patient Date of Phone Billing Address Personal/Family [address] [place] [id number] [facility] SELF PAY NO INSURANCE Member Subscriber Plan / Payer (Ef fective for All Dates) Name:Michelle Cheney Member ID:Not on file Relation to Subscriber:Not on file Name:MICHELLE CHENEY Subscriber ID:Not on file Address: [address] [place] [id number] Payer ID:Not on file Group ID:Not on file Type:Self Pay Address: [place], [place]
[2024-08-13 11:12] LABS: HIV 1/2 Ab P24 Ag Result Negative (Negative)
[2024-08-13 11:55] LABS: Syphilis IgG/IgM Antibody Negative (Negative)
== END 2024-08-13 09:49 | disposition home or self-care (01) ==
LOC: ANHLAB 09:49
PROVIDERS: Visit Provider Obstetrics & Gynecology
DX: Z34.93 Encounter for supervision of normal pregnancy, unspecified, third trimester (principal); Z3A.00 Weeks of gestation of pregnancy not specified
CPT/HCPCS: 36415; 85027; 86593; 86703; 86850; 86900; 86901; G0432

== ENCOUNTER 2024-08-14 05:28 | Inpatient (IN) | payer OTHER, SELFPAY ==
[2024-08-14] VITALS (62 sets, daily range): BP systolic 75–124; BP diastolic 38–75; PULSE 61–101; RESP 12–19; TEMP 36.3–37.2; O2SAT 94–100; BMI 25.5
--- OUTSIDE RECORDS SUMMARY | 2024-08-14 05:34 | XMS_ITS | Clinical Summary ---
Author Organization [facility] Address [address] [place] [address] Care Team Providers Care Air Tester Name Role Phone Unavailable Primary Care Provider Unavailabl e Source Comments [facility],non-owned Affiliates and Associated Physician Practices is amultiple site organization consisting of ambulatory clinics and hospital sitesin [place], [place], [place] and [place]. This disclosure is being madepursuant to the Care Everywhere program and may not contain all information available regarding this patient. Last updated 18.[facility] Social History Tobacco Use Types Packs/Day Years [...] Date of Phone Billing Address Personal/Family [phone] HEALTH CARE SELF PAY NO INSURANCE Member Subscriber Plan / Payer (Ef fective for All Dates) Name:Michelle Cheney Member ID:Not on file Relation to Subscriber:Not on file Name:MICHELLE CHENEY Subscriber ID:Not on file Address: [address] [place] [address] Payer ID:Not on file Group ID:Not on file Type:Self Pay Address: [facility] * Guarantor: MICHELLE CHENEY Type Relation to Patient Date of Phone Billing Address Personal/Family [address] [place] [address] HEALTH CARE SELF PAY NO INSURANCE Member Subscriber Plan / Payer (Ef fective for All Dates) Name:Michelle Cheney Member ID:Not on file Relation to Subscriber:Not on file Name:MICHELLE CHENEY Subscriber ID:Not on file Address: [address] [place] [id number] Payer ID:Not on file Group ID:Not on file Type:Self Pay Address: [place] * Guarantor: MICHELLE CHENEY Account Type Relation to Patient Date of Phone Billing Address Personal/Family [address] [place] [id number] [facility] SELF PAY NO INSURANCE Member Subscriber Plan / Payer (Ef fective for All Dates) Name:Michelle Cheney Member ID:Not on file Relation to Subscriber:Not on file Name:MICHELLE CHENEY Subscriber ID:Not on file Address: [address] [place] [id number] Payer ID:Not on file Group ID:Not on file Type:Self Pay Address: [place]
--- OUTSIDE RECORDS SUMMARY | 2024-08-14 05:34 | XMS_ITS | Clinical Summary ---
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
[2024-08-14] MEDS: LACTATED RINGERS 1,000 ML 125 ML IV CONT (06:20)
[2024-08-14] MEDS: ACETAMINOPHEN 500 MG TABLET 1000 MG PO (06:21)
[2024-08-14] MEDS: FAMOTIDINE 20 MG/2 ML VIAL IV PUSH (06:21)
[2024-08-14] MEDS: ceFAZolin 2 GM/D5W 50 ML 2 GM/50 ML BAG IVPB (06:22)
[2024-08-14] MEDS: ONDANSETRON INJ 4 MG/2 ML VIAL IV PUSH (06:22)
--- NOTE | 2024-08-14 06:39 | LDADM ---
This patient, Emilie Ramirez, was admitted to Labor/Delivery/Recovery 120 on 08/14/24 at 05:28. Plans for section, pain management and were discussed with patient. Patient/family oriented to hospital policies and general routines including ID bracelet, bed and alarms, visiting hours, pain management, procedures, bathroom and other care routines, personal items, smoking policy, room service/diet and guest tray routines, security routines, and visiting hours. Patient/Family are encouraged to report perceived risks to care and to ask questions if they do not understand what they are told or what they should do. See OBIX for further documentation.
--- NOTE | 2024-08-14 06:50 | P.PNAN_ITS ---
Anes - Initial Pre Proc Eval Procedure: Operation Date: 08/14/24 07:30 Proposed Procedures p Repeat Section - Hammad Cuevas MD Date/Time: 08/14/24 06:50 Surgeon: Hammad Cuevas MD Pre Op Diagnosis: C/S Patient Data Age: 29 Gender: F Height: 1.7 m Weight: 74 kg Last Vital Signs Pulse 87 08/14/24 06:16 BP 108/67 08/14/24 06:16 Pulse Ox 95 08/14/24 06:23 O2 Del Method Room Air 08/14/24 06:39 Allergies Allergy/AdvReac Type Severity Reaction Status Date / Time No Known Allergies Allergy Verified 07/27/24 15:45 Home Medications ?Medication ?Instructions ?Recorded ?Confirmed ?Type vit no.95-ferrous 1 tablet PO DAILY 07/27/24 07/27/24 History fumarate 28 mg-folic acid 800 mcg tablet () Patient hx anesthesia problems: none Family hx anesthesia problems: none Results Review: All pre-operative results and documents have been reviewed as part of the pre- operative evaluation. PMFSH Past Medical History Medical History (Updated 09/13/23 @ 11:14 by Ross Damon MD) Missed ab Family History Family History Father Hypertension Grandparent Diabetes mellitus Heart disease Grandparent Diabetes mellitus Social History Social History Smoking status: Never smoker Alcohol intake: current Drinks per week: 1 Substance use: never Do You Feel Safe in your Home?: Yes Lack of Transportation: No Lack of Food: Never True Current Housing: I Have Housing Concerned About Future Housing: No Difficulty Paying Gas/Electric Bills: No Difficulty Paying for Meds: No Currently Unemployed: No Education: Bachelor's Degree Difficulty w/ Childcare or Family Care: No Living arrangements: with family Spiritual care concerns: No Anes - Eval Final PreProcedure Day of Procedure 08/14/24 06:50 Patient weight: obese Heart: regular rate and rhythm Lungs: clear to auscultation and normal air movement Airway: Mallampati scale class II Neurological: alert and oriented Last oral intake: >/= 8 hours ASA classification: II Emergent: no Anesthetic plan: proceed Anesthesia type and monitoring: regional spinal and standard monitoring Results Review: All pre-operative results and documents have been reviewed as part of the pre- operative evaluation. Informed Consent: The patient's anesthetic plan and its attendant risks and benefits were discussed with the patient/family/POA. Questions were solicited and answers provided to the satisfaction of the patient/family/POA.
--- NOTE | 2024-08-14 07:23 | P.HP_ITS ---
H&P: HPI History of Present Illness Date/Time: 08/14/24 07:23 Chief Complaint: Term Narrative: 29-year-old multiparous female with previous delivery and a term . We have agreed to proceed with repeat delivery The patient understands the details of the procedure. The procedure has been explained in detail. She understands the risks. She understands that injuries may occur that result in hospitalization, more surgery, and severe illness. She understands risk of hemorrhage and infection. She denies any chest pain or shortness of breath. She denies any nausea, vomiting, fever, chills. Review of Systems Review of Systems: All systems reviewed & are unremarkable except as noted in HPI and below Constitutional: Constitutional: Denies chills, Denies fatigue, Denies fever(s) and Denies weakness Eyes: Eyes: Denies blurry vision, Denies change in vision, Denies loss of peripheral vision, Denies loss of vision, Denies other visual disturbances and Denies eye pain ENT: Denies vertigo, Denies dizziness, Denies hearing loss, Denies mouth pain, Denies nasal obstruction, Denies neck mass and Denies neck pain Cardiovascular: Cardiovascular: Denies chest pain, Denies diaphoresis, Denies syncope, Denies leg edema and Denies dyspnea Respiratory: Respiratory: Denies chest congestion, Denies cough, Denies hemoptysis, Denies dyspnea and Denies wheezing Gastrointestinal: Gastrointestinal: Denies abdominal pain, Denies constipation, Denies diarrhea, Denies nausea and Denies vomiting Genitourinary: Genitourinary: Denies hematuria, Denies change in libido, Denies nocturia, Denies genital lesions, Denies flank pain and Denies urinary urgency Musculoskeletal: Musculoskeletal: Denies abnormal gait, Denies back pain, Denies myalgias, Denies arthralgias, Denies joint swelling, Denies muscle weakness and Denies neck pain Integumentary/Breasts: Skin/Breast: Denies swelling, Denies breast pain, Denies breast mass, Denies dry skin, Denies nipple discharge, Denies unusual bruising and Denies jaundice Neurologic: Denies Neuro-related abnormal movements, Denies Abnormal speech present, Denies abnormal gait, Denies behavioral changes, Denies confusion, Denies vertigo, Denies dizziness, Denies syncope, Denies loss of vision, Denies memory loss, Denies convulsions and Denies weakness Psychiatric: Psychiatric: Denies abnormal sleep pattern, Denies behavioral changes, Denies change in libido, Denies confusion, Denies depression, Denies anhedonia and Denies memory loss Endocrine: Endocrine: Reports no additional endocrine complaints, Denies change in libido and Denies fatigue Hematologic/Lymphatic: Hematologic/Lymphatic: Reports no additional hematologic/lymphatic complaints Allergic/Immunologic: Allergic/Immunologic: Reports no additional allergic/immunologic complaints and Denies wheezing PMFSH Past Medical History Medical History (Updated 08/14/24 @ 07:26 by Hammad Cuevas MD) Missed ab Family History Family History Father Hypertension Grandparent Diabetes mellitus Heart disease Grandparent Diabetes mellitus Social History Social History Smoking status: Never smoker Alcohol intake: current Drinks per week: 1 Substance use: never Do You Feel Safe in your Home?: Yes Lack of Transportation: No Lack of Food: Never True Current Housing: I Have Housing Concerned About Future Housing: No Difficulty Paying Gas/Electric Bills: No Difficulty Paying for Meds: No Currently Unemployed: No Education: Bachelor's Degree Difficulty w/ Childcare or Family Care: No Living arrangements: with family Spiritual care concerns: No Meds Home Medications and Allergies Home Medications ?Medication ?Instructions ?Recorded ?Confirmed ?Type vit no.95-ferrous 1 tablet PO DAILY 07/27/24 07/27/24 History fumarate 28 mg-folic acid 800 mcg tablet () Allergies Allergy/AdvReac Type Severity Reaction Status Date / Time No Known Allergies Allergy Verified 07/27/24 15:45 Vital Signs Vital Signs - 24 hr 08/14/24 05:42 08/14/24 05:43 08/14/24 05:46 Pulse Rate 101 H 72 Blood Pressure 115/75 75/38 L Pulse Oximetry 98 94 Oxygen Delivery 08/14/24 05:48 08/14/24 05:53 08/14/24 05:58 Pulse Rate Blood Pressure Pulse Oximetry 99 97 96 Oxygen Delivery 08/14/24 06:01 08/14/24 06:03 08/14/24 06:08 Pulse Rate 82 Blood Pressure 105/64 Pulse Oximetry 96 96 Oxygen Delivery 08/14/24 06:13 08/14/24 06:16 08/14/24 06:18 Pulse Rate 87 Blood Pressure 108/67 Pulse Oximetry 96 96 Oxygen Delivery 08/14/24 06:23 08/14/24 06:39 Pulse Rate Blood Pressure Pulse Oximetry 95 Oxygen Delivery Room Air Exam Const: General: cooperative, healthy appearing, comfortable and no acute d istress Orientation/consciousness: oriented to person, oriented to place and oriented to time HENMT: Head: normal to inspection Ears: external ears normal Face/Nose/Sinus: Normal external nose present and normal facial exam Face and sinus: normal facial exam Eyes: General: appearance normal, both eyes and all related structures Neck: Neck: normal visual inspection, trachea midline and supple Resp: Auscultation: clear to auscultation bilaterally, no crackles, no rales, no rhonchi and no wheezes Cardio: Rate: regular rate Rhythm: regular rhythm Heart sounds: no cl ick, no murmurs and no rubs GI: GI Palp: No abdominal tenderness, No Soft to palpation, No Tenderness to palpation present (GI) and No Palpable mass present Auscultation: normal bowel sounds Skin: General skin exam: normal color and no rashes or lesions noted Neuro: General: oriented to person, oriented to place and oriented to time Extrem: General: normal to inspection, no joint enlargement, no clubbing, cyanosis or edema, no pedal edema and no calf tenderness Psych: Appearance: grossly normal Mental Status: mental status grossly normal Speech and movement: Normal speech and movement present Assessment and Plan Assessment and plan (1) delivery delivered: Code(s): O82 - Encounter for delivery without indication Status: Acute (2) Term : Code(s): Z34.90 - Encounter for supervision of normal , unspecified, unspecified trimester Status: Acute Plan 29-year-old multiparous female with previous delivery and a term . We have agreed to proceed with repeat delivery
--- NOTE | 2024-08-14 07:26 | WPDHPUPDATE1 ---
History and Physical Update Update Date/Time: 08/14/24 07:26 History and Physical has been reviewed, including an updated exam of the patient. There are NO changes in the patient's condition. Risks, benefits, and alternatives have been discussed and questions answered. Patient agrees to proceed with procedure.
--- NOTE | 2024-08-14 08:38 | W.PM.OBCSD ---
OB - Delivery Note Procedure Delivery date: 08/14/24 Pre-op diagnosis: Previous Delivery Post-op Diagnosis: Same Procedure Performed: Repeat Surgeon: Hammad Cuevas MD Anesthesia type: Spinal Description of Procedure/Findings: The patient was taken the operating room.? She was prepped and draped in dorsal supine position with a leftward tilt.? This was done after spinal anesthetic was applied.? A low-transverse skin incision was made and carried down till of the fascia with the knife.? The fascial incision was made with the knife.? The fascial incision was extended laterally with Hallman scissors.? The fascia was tented upward superiorly and inferiorly the rectus muscles were dissected off bluntly.? The rectus muscles were the midline.? The preperitoneal fat and peritoneum were dissected open bluntly at the superior aspect of the rectus muscles.? The peritoneal incision was extended superior and inferior with good position of bladder.? The uterine incision was made with a scalpel down to the level of the amniotic cavity.? The amniotic cavity was entered bluntly.? The infant was delivered.? The cord was clamped and cut and the infant was handed off to waiting pediatric staff.? Cord bloods were obtained.? The placenta was removed manually.? The uterus was exteriorized.? The uterus was cleared of all clots, debris and membranes.? The uterus was closed in 0 Vicryl running lock fashion.? An imbricating over a was placed along the incision line as well.? The uterus was returned to the abdomen.? The gutters were cleared of all clots and debris.? The fascia was closed with 0 Vicryl running fashion.? The subcutaneous tissue was irrigated pinpoint bleeders were cauterized.? The skin was closed with subcuticular 4-0 Monocryl running suture..? The skin incision line was covered with glue.? The patient tolerated the procedure well.? She has taken recovery room in stable condition.? Sponge lap and needle counts were correct x2.? Estimated Blood Loss: 645 Pathology: None sent Complications: No immediate complications Condition: Stable Disposition: Floor
[2024-08-14] MEDS: OXYTOCIN 30 UNITS/NS 500 ML 30 UNITS/500 ML BAG 125 UNITS IV CONT (10:08)
[2024-08-14] MEDS: MORPHINE SULFATE INJ (*CRX) 10 MG/ML AMP 2 MG IV PUSH (10:35)
--- NOTE | 2024-08-14 11:15 | OBPPTRN ---
Patient transferred to post room # 276 via stretcher. Support person present. Oriented to unit, room, information board, rooming in, admission packet and security measures. Patient verbalizes understanding.
[2024-08-14] MEDS: DOCUSATE SODIUM 100 MG CAPSULE PO ×2 (12:19→17:49)
[2024-08-14] MEDS: SIMETHICONE 80 MG TAB.CHEW PO ×2 (12:19→17:49)
[2024-08-14] MEDS: DEXTROSE 5%/0.45% SOD CHL 1,000 ML 125 ML IV CONT (12:20)
[2024-08-14] MEDS: ACETAMINOPHEN 325 MG TABLET 650 MG PO ×2 (13:01→20:18)
[2024-08-14] MEDS: MULTIVIT/MIN/PREN/FOL AC/IRON TABLET 1 TAB PO (13:02)
[2024-08-14] MEDS: KETOROLAC 15 MG/ML VIAL (*BKC) IV PUSH ×2 (13:02→20:18)
[2024-08-14] MEDS: LIDOCAINE 5% PATCH 1 PATCH TRANSDERM (22:10)
[2024-08-15] MEDS: ACETAMINOPHEN 325 MG TABLET 650 MG PO ×4 (02:32→21:32)
[2024-08-15] MEDS: KETOROLAC 15 MG/ML VIAL (*BKC) IV PUSH ×2 (02:32→08:57)
[2024-08-15] MEDS: HYDROcodone/acetaminophen (*CRX) 5-325 MG TABLET 1 TAB PO ×2 (02:41→13:42)
[2024-08-15 03:30] VITALS: BP 104/62; PULSE 72; RESP 16; TEMP 36.8; O2SAT 98
[2024-08-15 05:26] LABS: Basophils Percent Auto 0.1 % (0.2-1.2); Eosinophils Absolute Auto 0.1 K/mm3 (0-0.3); Eosinophils Percent Auto 0.9 % (0-4.4); Hematocrit 30.6 % (37.0-47.0); Hemoglobin 10.1 g/dL (12.0-15.0); Immature Granulocyte Absolute 0.03 K/mm3 (0.00-0.031); Immature Granulocyte Percent A 0.4 % (0-0.5); Lymphocytes Absolute Auto 2.14 K/mm3 (0.9-3.2); Lymphocytes Percent Auto 31.3 % (18.3-44.2); Mean Corpuscular Hemoglobin 33.3 pg (26-34); Mean Platelet Volume 10.9 fl (7.4-10.4); Monocytes Absolute Auto 0.5 K/mm3 (0.1-0.6); Neutrophils Absolute Auto 4.1 K/mm3 (1.3-6.7); Neutrophils Percent Auto 60.3 % (45.5-73.1); Platelet Count Result 142 k/mm3 (150-375); Red Blood Count 3.03 M/mm3 (4.2-5.4); White Blood Count 6.8 K/mm3 (4.5-10.0)
[2024-08-15] MEDS: MULTIVIT/MIN/PREN/FOL AC/IRON TABLET 1 TAB PO (08:56)
[2024-08-15] MEDS: SIMETHICONE 80 MG TAB.CHEW PO ×3 (08:56→16:49)
[2024-08-15] MEDS: DOCUSATE SODIUM 100 MG CAPSULE PO ×2 (08:56→16:48)
[2024-08-15 09:16] VITALS: BP 103/66; PULSE 66; RESP 14; TEMP 36.6; O2SAT 100
--- NOTE | 2024-08-15 12:44 | WPDANLDPN2 ---
Anes-Prog Note L&D Date/Time: 08/15/24 12:44 Comfortable throughout: section Neuraxial method: spinal Epidural/Spinal procedure site: clean & non-tender Neuro status: Neuro function grossly intact. Cardiovascular status: normal Respiratory status: normal Airway patency: baseline Mental status: baseline Post-Op hydration status: normal Vital Signs: Last Vital Signs Temp 36.6 C 08/15/24 09:16 Pulse 66 08/15/24 09:16 Resp 14 08/15/24 09:16 BP 103/66 08/15/24 09:16 Pulse Ox 100 08/15/24 09:16 O2 Del Method Room Air 08/14/24 20:15 Pain score (VAS): 2 I/O: Intake & Output 08/14/24 08/15/24 08/15/24 23:59 07:59 15:59 Intake Total 2100 450 Output Total 875 1100 Balance 1225 -650 Post-procedural complaints: none Patient feedback: Patient satisfied with anesthetic care.
--- NOTE | 2024-08-15 12:44 | WPDANLDNPN2 ---
Anes-Prog Note L&D-Neuraxial Date/Time: 08/15/24 12:44 Neuraxial medications: intrathecal PF morphine Opiod-related complaints: none Patient feedback: Patient satisfied with post-operative pain management.
--- NOTE | 2024-08-15 13:50 | PC.NURSE ---
Met with patient regarding needs. She states that she is able to latch baby independently without pain. She breastfed her first child. She is encouraged to call out for any questions or concerns she has regarding or if she would like assistance with feeding or latch check. She has a breast pump at home and does not require a WIC referral. No further concerns. RN updated.
[2024-08-15] MEDS: IBUPROFEN 600 MG TABLET PO ×2 (15:06→21:32)
[2024-08-15 19:00] VITALS: BP 110/57; PULSE 76; RESP 16; TEMP 36.9; O2SAT 100
[2024-08-16] MEDS: ACETAMINOPHEN 325 MG TABLET 650 MG PO ×2 (04:05→09:31)
[2024-08-16] MEDS: HYDROcodone/acetaminophen (*CRX) 5-325 MG TABLET 1 TAB PO ×2 (04:05→09:32)
[2024-08-16] MEDS: IBUPROFEN 600 MG TABLET PO ×2 (04:05→09:31)
[2024-08-16 07:28] VITALS: BP 123/79; PULSE 72; RESP 18; TEMP 36.5; O2SAT 100
[2024-08-16] MEDS: DOCUSATE SODIUM 100 MG CAPSULE PO (09:31)
[2024-08-16] MEDS: SIMETHICONE 80 MG TAB.CHEW PO (09:31)
[2024-08-16] MEDS: MULTIVIT/MIN/PREN/FOL AC/IRON TABLET 1 TAB PO (09:31)
--- NOTE | 2024-08-16 10:20 | P.PNOB_ITS ---
OB - PN: Subj Subjective Date/time seen: 08/16/24 10:20 Patient comments: no complaints, pain well controlled and tolerating diet OB - PN: Obj Data Labs 08/15/24 02:31 OB - PN A/P Plan day: 2 Plan: routine care and discharge home Time Spent With Patient Time: Total time spent is greater than 50% in coordination of care (as documented) at patient's floor/unit and/or counseling patient: Exam 2 Const: General: comfortable and no acute distress Resp: Effort & Inspection: normal respiratory effort Auscultation: no rales, no rhonchi and no wheezes Cardio: Rate: regular rate Heart sounds: no click, no murmurs and no rubs GI: GI Palp: Yes Soft to palpation and No Tenderness to palpation present (GI) Auscultation: normal bowel sounds Extrem: General: normal to inspection, no pedal edema and no calf tenderness
--- NOTE | 2024-08-16 10:21 | P.DS_ITS ---
DS: Admitting Diagnosis Discharge Date 08/16/2024 Admitting Diagnosis Term DS: Discharge Diagnosis Discharge Diagnosis (1) delivery delivered: Code(s): O82 - Encounter for delivery without indication Status: Acute OB - DS: Summary OB Procedures : None OB Procedures Intrapartum: Spontaneous Vag Delivery OB Procedures: : None Peripartum Data Procedures: Procedures Operation Date: 08/14/24 07:30 Actual Procedure Side Surgeon p Repeat Section Not Applicable Hammad Cuevas MD Time Spent with Patient Time attestation: Total time spent providing and/or coordinating discharge services: Discharge Plan Discharge Discharging Clinician: Hammad Cuevas Patient Disposition: Home Activity: pelvic rest Diet: regular Discharge Instructions: Education: Mom and Baby Guide Given to: Mother Follow-Up: Call your delivering provider's office for an appointment to be seen in: call the office for appointment Mom and baby should come to the [facility] for the follow-up appointment. Appointment Date/Time: August 17, 2024 at 3:30 pm What to expect at your follow-up visit: Blood Pressure Check Physical Assessment Call [phone] if you are unable to keep your appointment time. BREAST CARE: * Wear a snug supportive bra. * For engorgement discomfort: Breast Feeding: * Apply warm moist washcloths * Express milk as needed to relieve engorgement * Wear loose clothing * For sore nipples: * Identify correct latch-on * Apply warm moist washcloths before and after nursing * Air dry nipples after nursing * May apply Lansinoh cream to nipples ABDOMINAL INCISION: * Allow incision to air dry * Do NOT use lotions for powders on your incision * When showering, allow soap and water to run over the incision, but do not wash incision * Change your pad frequently throughout the day * No tub baths until seen by your physician - You may shower ACTIVITY: * Rest as much as possible. * Do not exercise or lift anything heavier than your baby (such as laundry or other children.) * Avoid stairs or driving as much as possible. * Do not put anything into the vagina. No douching, tampons, or sexual activity until seen by physician. NOTIFY PHYSICIAN IF YOU HAVE ANY QUESTIONS OR IF ANY OF THE FOLLOWING SYMPTOMS OCCUR: * If your episiotomy or incision becomes red, swollen, or more painful than what you have experienced in the hospital. * If your vaginal bleeding becomes foul smelling. * If your vaginal bleeding becomes more heavy than a period or if your bleeding changes from pink to bright red. However, you may pass an occasional walnut- sized clot once or twice for the first week . * If you experience a sharp, shooting pain in you calves. * If you discover a hard, reddened area on your breast or if you experience flu- like symptoms. DIET: * Eat regular, well-balanced meals. * Drink plenty of fluids daily. If , drink to thirst. Patient Instructions: Antibiotic Form Patient Language: Maldivian Stand Alone Forms: General Discharge Information Follow-up/Referrals: Hammad Cuevas MD [Physician] - Discharge Medications: Continued PNV [id number] [] 28 mg iron- 800 mcg tablet 1 tablet PO DAILY Date of admission: 08/14/24 05:28 Primary Care Provider: PHYSICIAN,INFORMATICS PHARMACIST Admitting Provider: Hammad Cuevas Attending physician on admission: Hammad Cuevas Condition: Stable
[2024-08-17 15:46] VITALS: BP 135/78; PULSE 78; RESP 18; TEMP 36.4; O2SAT 100
== END 2024-08-16 12:42 | disposition home or self-care (01) | DRG 788 ==
LOC: ANHLDR 05:32 → ANHOB2 12:00
PROVIDERS: Admitting Provider Obstetrics & Gynecology; Visit Provider Obstetrics & Gynecology
PROC: 10D00Z1 Extraction of Products of Conception, Low, Open Approach (ICD-10-PCS; CPT 59514; principal; 2024-08-14 07:30)
DX: O34.219 Maternal care for unspecified type scar from previous cesarean delivery (principal); Z3A.39 39 weeks gestation of pregnancy; Z37.0 Single live birth
CPT/HCPCS: 36415; 85025; A9270; J0690; J1885; J2270; J2274; J2371; J2405; J2590; J7120

== ENCOUNTER 2024-09-19 17:40 | Emergency (ER) | payer OTHER, SELFPAY ==
--- NOTE | ~2024-09-19 | XR_ITS ---
EXAMINATION: XR chest 2V Exam Date/Time: 09/19/2024 18:55 CDT HISTORY: cough, fever Comparison: None. RESULT: Lines, tubes, and devices: None. Lungs and pleura: Segmental focus of reticulonodular and centrilobular nodular opacities in the supe rior segment of the right lower lobe. Cardiomediastinal silhouette: Stable. Other: No acute osseous or upper abdominal finding. IMPRESSION: Superior segment, right lower lobe opacities as can be seen with aspiration or atypical infection. Reviewed, dictated and finalized at location K.
--- NOTE | ~2024-09-19 | CT_ITS ---
EXAMINATION: CT abdomen pelvis w con DATE: 09/19/2024 19:36 INDICATION: fever, 1 month post c section TECHNIQUE: Computed tomography (CT) of the abdomen and pelvis was performed with 100 mL Omnipaque-350 intravenous contrast. Automated exposure control and iterative reconstruction technique were employe d. The dose-length product was 249.13 mGy-cm. COMPARISON: None. FINDINGS: Lower thorax: Unremarkable Liver: Enlarged Biliary/Gallbladder: Gallbladder is normal. No bile duct dilation. Pancreas: No mass or duct dilation. Spleen: Subcentimeter hypodensity, likely cyst or hemangioma. Adrenals:No mass. Kidneys: No suspicious mass, obstructing stone, or hydronephrosis. GI tract: Mild distal esophageal and gastric wall edema. Moderate volume of colonic feces. No small o r large bowel dilation. Normal appendix. Mesentery/Peritoneum: No ascites, mass, or free air. Retroperitoneum: No mass. Pelvis: Normal urinary bladder. Retroverted uterus. scar. Normal bilateral ovaries. Trace fr ee pelvic fluid, within physiologic range. Soft Tissues: Uncomplicated umbilical hernia. Low transverse surgical scar, without focal fluid. Bones: No acute osseous finding. IMPRESSION: Mild esophagitis/gastritis. Hepatomegaly. Surgical changes status post section, with no CT evidence of related complications. Moderate volume of colonic fecal material. Correlate for clinical findings of constipation. Reviewed, dictated and finalized at location K. IMPRESSION: Mild esophagitis/gastritis. Hepatomegaly. Surgical changes status post section, with no CT evidence of related c omplications. Moderate volume of colonic fecal material. Correlate for clinical findings of c onstipation.
--- OUTSIDE RECORDS SUMMARY | 2024-09-19 17:42 | XMS_ITS | Clinical Summary ---
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
--- OUTSIDE RECORDS SUMMARY | 2024-09-19 17:42 | XMS_ITS | Clinical Summary ---
Author Organization [facility] Address [address] [place] [address] Care Team Providers Care Electronics Repair Technician Name Role Phone Unavailable Primary Care Provider Unavailabl e Source Comments [facility],non-owned Affiliates and Associated Physician Practices is amultiple site organization consisting of ambulatory clinics and hospital sitesin [place], [place], [place] and [place]. This disclosure is being madepursuant to the Care Everywhere program and may not contain all information available regarding this patient. Last updated 18.[facility] [employer] Social History Tobacco Use Types Packs/Day Years [...] Date of Phone Billing Address Personal/Family [phone] [facility] SELF PAY NO INSURANCE Member Subscriber Plan / Payer (Ef fective for All Dates) Name:Michelle Cheney Member ID:Not on file Relation to Subscriber:Not on file Name:MICHELLE CHENEY Subscriber ID:Not on file Address: [address] [place] [address] Payer ID:Not on file Group ID:Not on file Type:Self Pay Address: [facility] * Guarantor: MICHELLE CHENEY Type Relation to Patient Date of Phone Billing Address Personal/Family [address] [place] [address] HEALTH CARE SELF PAY NO INSURANCE Member Subscriber Plan / Payer (Ef fective for All Dates) Name:Michelle Cheney Member ID:Not on file Relation to Subscriber:Not on file Name:MICHELLE CHENEY Subscriber ID:Not on file Address: [address] [place] [id number] Payer ID:Not on file Group ID:Not on file Type:Self Pay Address: [place], [place] * Guarantor: MICHELLE CHENEY Account Type Relation to Patient Date of Phone Billing Address Personal/Family [address] [place] [id number] [facility] SELF PAY NO INSURANCE Member Subscriber Plan / Payer (Ef fective for All Dates) Name:Michelle Cheney Member ID:Not on file Relation to Subscriber:Not on file Name:MICHELLE CHENEY Subscriber ID:Not on file Address: [address] [place] [id number] Payer ID:Not on file Group ID:Not on file Type:Self Pay Address: [place], [place]
--- OUTSIDE RECORDS SUMMARY | 2024-09-19 17:42 | XMS_ITS | Data Portability ---
Author Organization [facility] [place] Address [address] [place] [address] Assessment Encounter Date Assessment Date Assessment LastModified by Organization Details LastModified Time 07/27/2024 07/27/2024 Patient is ___weeks . Discussed plan. Not available 07/27/2024 09:46:45 08/03/2024 08/03/2024 Patient is ___weeks . Discussed plan. Not available 08/03/2024 17:06:35 08/11/2024 08/11/2024 Patient is _38__weeks . Discussed plan. Not available 08/11/2024 09:43:41 Plan of Treatment Reminders Order Date Submit Date Provider Last Modified By Organization Details Last Modified Time Details Appointments POST 2024 08:30A Aniya CUEVAS MD Not available Not available Not available Lab None recorded . Referral None recorded . Procedures None recorded . Surgeries None recorded . Imaging None recorded . Medication Orders None recorded . Patient TargetsNo targets recorded. Patient InstructionsNo instructions recorded. Reason for Referral None Reported. Results Created Date Observation Date Name Description Value Unit Range Abnormal Flag Note LastModifiedBy Organization Detail LastModifiedTime 07/28/1907/27/2024 CULTU RE: GROUP B STREP SCREE [...] Resul t Statu s: Final resul t Nickyor mal: Yes Enedina susan Lab: [facility] [address] [facility] [address] Tel: CULTU RE ----- ----- ----- --- Posit mak for Strep tococ cus agala ctiae (Grou p B) (Abno rmal) Clind amyci n is presu med to be resis tant based on detec tion of induc ible clind amyci n resis tance (D-t est posit mak) . Eryth romyc in = resis tant. Cefaz lubna may be used for intra partu m proph ylaxi s in penic illin -heike rgic women at low risk, and Vanco mycin is recom karma d for women at high risk for anaph ylaxi s. Susce ptibi lity testi ng is not neces jarocho for these drugs . Not Available [facility] (Lab) [address], [place], [address], 07/31/2024 09:56:54 Result Notes None recorded. Problems Name Problem SNOMED Code Status Onset Date Resolution Date Notes Provider Name and Address Organization Details Recorded Time Pregnanc y 61395095 Completed 202107/30/2022 Ping ngo [facility] 5 10:10:14 Placenta previa 20947161 Completed [facility] - US q4, pelvic rest RESOLVED !! Julieta ngo [facility] 3 16:28:36 Uterine size for dates discrepa ncy 106355778 Completed 2022 Julieta ngo [facility] 3 16:28:36 Breech presenta tion 6317069 Completed CS 07/16 unless no longer breech Julieta ngo [facility] 3 16:28:36 Pregnanc y 38116676 Completed 202308/20/2024 Ping ngo, [facility] 5 10:10:14 Deliveri es by [id number] Completed Done for breech, REPEAT Hammad Cuevas MD [address], [place], [address], [facility] 5 11:33:21 Problem Notes None recorded. Procedures Surgical History Date Name Laterality Status Provider Name and Address Organization Details Recorded Time 08/15/19 25 SUCTION DILATION & CURETTAGE (SURG) completed Radhika Slade [facility] 08/15/2024 08:07:58 09/13/19 24 Dilation and Curettage completed EDWARD Scott [facility] 09/16/2024 15:14:54 09/13/19 24 SUCTION DILATION & CURETTAGE (SURG) completed Kailash Zuniga [facility] 09/13/2023 13:59:13 09/04/19 23 Date of Last Pap Smear completed Ayesha Glez [facility] 08/05/2023 14:42:53 07/17/19 23 Caesarean Section completed EDWARD Scott [facility] 09/16/2024 15:14:54 07/17/19 23 SECTION (SURG) completed Nereyda Michaels [facility] 07/31/2022 09:41:01 09/01/19 22 Date of Last Mammogram completed Kady Khan [facility] 09/03/2022 11:08:18 04/15/19 15 extraction of wisdom tooth completed Radhika Slade [facility] 11/30/2021 14:40:14 Caesarean Section completed EDWARD Scott [facility] 09/16/2024 15:14:29 Imaging Results None recorded. Procedure Notes None [...] Not Available Not Avai lable Not Available Amox Tr-Potassiu m Clavulanate active Not Available Not Available Not Available Estarylla 0.25 mg-0.035 mg tablet Take 1 tablet every day by oral route. 11/30 completed Not Available Not Available Not Available Vitals Date Recorded Body height Body mass index (BMI) Body weight Systolic blood pressure Diastolic blood pressure Provider Name and Address Organization Details Last Updated DateTime 07/27/2024 170.18 cm 25.5 kg/m2 03150.56 g 106 mm[Hg] 67 mm[Hg] Ping Woods [facility] 09:47:12 Date Recorded Body weight Systolic blood pressure Diastolic blood pressure Provider Name and Address Organization Details Last Updated DateTime 08/03/2024 62008.7410 5 g 108 mm[Hg] 66 mm[Hg] Ping Woods [facility] 08/03/2024 17:07:15 Date Recorded Body height Body mass index (BMI) Body weight Systolic blood pressure Diastolic blood pressure Provider Name and Address Organization Details Last Updated DateTime 08/11/2024 170.18 cm 25.7 kg/m2 84566.15 g 121 mm[Hg] 71 mm[Hg] Radhika Slade [facility] 5 09:34:03 Date Recorded Body height Body mass index (BMI) Body weight Systolic blood pressure Diastolic blood pressure Provider Name and Address Organization Details Last Updated DateTime 08/20/2024 170.18 cm 24 kg/m2 79993.63 g 129 mm[Hg] 86 mm[Hg] Ping Chuck [facility] 5 10:02:50 Social History Question Answer Notes LastModified by Organizat ion Details LastModified Time Tobacco Smoking Status Never Smoker Jolene Andrewkoki ngo, [facility] 09/03/2022 10:59:28 Do You Have An Advance Directive? No Information n ot available 08/31/2021 If You Are , What Was Your Level Of Alcohol Consumption Prior To ? Occasional [email or web address] Information not available 09/03/2022 How Many Years Have You Consumed Alcohol? 4 Information not available 08/31/2021 Are You Blind Or Do You Have Difficulty Seeing? No Information n ot available 08/31/2021 What Is Your Level Of Caffeine Consumption? Occasional Information not available 05/04/2024 How Much Tobacco Do You Chew? None Information not available 08/31/2021 In The 14 Days Before Symptom Onset, Have You Had Close Contact With A Laboratory-confirm ed COVID-19 While That Case Was Ill? No Information n ot available 08/31/2021 In The 14 Days Before [...] Of Diet Are You Following? REGULAR Information n ot available 08/31/2021 What Is The Highest Grade Or Level Of School You Have Completed Or The Highest Degree You Have Received? [id number] Information not available 08/31/2021 Are There Any [...] IV Drugs? No Information not available 08/31/2021 Do You Have Difficulty Walking Or Climbing Stairs? No [email or web address] Information not available 09/03/2022 Sex: Unknown Functional Status Question Answer Note LastModified by Organizat ion Details LastModified Time Do you use any illicit or recreational drugs? No Information not available 08/31/2021 What is your level of alcohol consumption? None [email or web address] Information not available 11/30/2021 Are you able to walk? [email or web address] Information not available 08/31/2021 Are you able to care for yourself? 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 No [email or web address] Information not available 09/03/2022 What is your exercise level? Moderate Information not available 08/31/2021 Mental Status Question Answer Note LastModified by Organization D etails LastModified Time Do you feel stressed (tense, restless, nervous, or anxious, or unable to sleep at night)? [id number] Information not available 08/31/2021 Family History Relationship Description Onset Age of this Age Resolved Age Notes LastModified by Organization Details LastModified Time Paternal Grandfather Diabetes mellitus Not available 2021 11:18:05 Maternal Grandfather Diabetes mellitus Not available 2021 11:18:05 Paternal Grandmother Heart disease Not available 2021 11:18:05 Medical History Condition Response Allergies (Food, seasonal, environmental ) Y Other N Drug/Latex Allergies/Reactions N Breast Cancer N Blood Transfusion N Dermatologic Disorders N Lung Disease N Defects or Inherited Disease N Breast Problem N Gestational Diabetes N Hematologic disorders N Anesthesia Complications N History of STI N Deep Vein Thrombosis N Polycystic ovary syndrome N Anxiety Disorder N Autoimmune disease N Arthritis N Infertility N Polyps N Acid Reflux (GERD) N History of abnormal pap N Cancer N Stroke N Varicosities N Neurologic/Epilepsy N Endometriosis N High Cholesterol N Fibromyalgia N Headaches N Kidney Disease N Heart Problems N Thyroid Problems N Kidney or Bladder Problems N GI Problems N Eating Disorder N Anemia N Art (IVF or FET) N Psychiatric Illness N Ovarian Cancer N Diabetes N Pulmonary (TB, Asthma) N Hepatitis/Liver Disease N No Past Medical History N Eczema Y Urinary Tract Infection N Abuse/Domestic Violence N Asthma Y Trauma/Violence N Depression/ depression N Heart Disease N Pre-Eclampsia N Hypertension N Osteoporosis N Thrombophilias N Gynecological History Statement/Question Response Date of Last Mammogram 08/31/2021 Flow Light Date of LMP 11/04/2023 On BCP's at Conception? N Was last menstrual period normal Y STIs/STDs N HPV Vaccine Y Duration of Flow (days) 5 Current Control Method None Age at First Child 27 Are cycles usually normal Y Frequency of Cycle (Q days) 27 Sexually Active? Y Menses Monthly Y Date of DEXA bone scan Age of first menstrual cycle 13 Date of Last Pap Smear 09/03/2022 Sexual Problems? N LMP Definite N Obstetrics History GPAL:G 3 P 2 0 1 2 Type Value Full Term 2 Spontaneous 1 Living 2 Total 3 Past Encounters Encounter ID Performer Location Encounter Start Date Encounter Closed Date Diagnosis/Indication Diagnosis SNOMED-CT Code Diagnosis ICD10 Code Diagnosis Note [id number] SHADI Evans [place] [address] [address] 08/31/2021 11:03:09 08/31/2021 13:45:58 Contraception care management 522725010 Z30.9 Gynecologi c examination 43046984 Z01.419 Take Calcium with Vitamin D 1200mg [...] No hx of DVT/PE, liver disease, cancer, stroke/HI, or migraine with aura per patient.Rx sent for 1 yearShe is considerin g in the near future, encouraged daily vitamin starting nowNo hx of abnormal papsLast pap in 2020, normal at outside office. Will have [facility] obtain these records. Next pap due 2023 per guidelines STI testing declinedRT C in 1 year for WWE or sooner if needed [id number] Hammad Cuevas MD [place] [address] [address] 11/30/2021 13:54:23 11/30/2021 14:24:02 Routine care 441076757 Z34.91 [id number] Linette Brower CNM [place] [address] [address] 11/30/2021 14:21:30 11/30/2021 15:07:51 test positive 067879035 Z32.01 Risk factors addressed: Tobacco Cessation, Safe [...] n and address preventati ve healthcare . [id number] Shaye Horn MD [place] [address],[place] [address] 01/08/2022 11:53:44 01/08/2022 12:40:26 screening 154918116 Z36.82 [id number] Shaye Horn MD [place] [address],[place] [address] 01/08/2022 11:54:17 01/08/2022 13:40:30 Routine care 143792076 Z34.91 [id number] Hammad Cuevas MD [place] [address],[place] [address] 02/07/2022 14:31:01 02/07/2022 16:04:50 Routine care 851906430 Z34.91 [id number] Shaye Horn MD [place] [address],[place] [address] 03/05/2022 09:31:56 03/06/2022 11:25:48 screening for malformation 015226237 Z36.3 O44.42 Z3A.20 [id number] Shaye Horn MD [place] [address],[place] [address] 03/05/2022 09:32:30 03/05/2022 17:11:37 Placenta previa 59667754 O44.02 [id number] MD Barbra Jeffries [address],[place] [address] 04/03/2022 10:05:47 04/03/2022 12:52:42 Routine care 583696532 Z34.91 [id number] MD Barbra Jeffries [address],[place] [address] 04/03/2022 10:42:52 04/03/2022 11:43:12 Placenta previa 68671872 O44.02 Z3A.24 [id number] MD Barbra Jeffries [address],[place] [address] 05/04/2022 09:43:44 05/04/2022 10:29:13 Routine care 259567555 Z34.91 [id number] MD Barbra Jeffries [address],[place] [address] 05/16/2022 11:40:23 05/16/2022 12:02:18 Routine care 019357281 Z34.91 Uterine si ze for dates discrepancy 182081947 O26.849 [id number] MD Marisa [place] [address],[place] [address] 05/30/2022 11:04:22 05/30/2022 12:00:58 [id number] MD Barbra Jeffries [address],[place] [address] 06/13/2022 10:26:15 06/13/2022 11:00:42 Uterine size for dates discrepancy 315814481 O26.843 Z3A.34 [id number] MD Barbra Jeffries [address],[place] [address] 06/13/2022 10:28:50 06/13/2022 14:47:21 Routine care 436279766 Z34.91 Arnol smith ch presentation 76998193 O32.1XX9 [id number] MD Barbra Jeffries [address],[place] [address] 06/27/2022 10:42:49 06/27/2022 11:13:48 Routine care 808571388 Z34.91 Breech presentation 6096 002 O32.1XX9 [id number] Shaye Horn MD [place] [address],[place] [address] 07/04/2022 11:21:08 07/05/2022 15:04:50 Routine care 823325288 Z34.91 Breech presentation 6096 002 O32.1XX9 [id number] Shaye Horn MD [place] [address],[place] [address] 07/11/2022 12:38:19 07/11/2022 14:45:42 Breech presentation 0516573 O32.1XX9 Routine an tenatal care 132225260 Z34.91 [id number] Shaye Horn MD [place] [address],[place] [address] 07/25/2022 11:26:50 07/25/2022 14:19:03 Postoperative visit 184205081 Z09 [id number] Shaye Horn MD [place] [address],[place] [address] 08/28/2022 16:24:40 08/29/2022 10:23:15 care 034489953 Z39.2 Initial pr escription of oral contraception 036279878 Z30.011 [id number] SHADI Evans [place] [address],[place] [address] 09/03/2022 10:59:19 09/03/2022 11:41:08 Gynecologic examination 80570959 Z01.419 Take Calcium with Vitamin D 1200mg [...] sooner if needed Contracept ion care management 446372803 Z30.9 [id number] MD Barbra [place] [address],[place] [address] 07/04/2023 12:20:27 07/04/2023 13:59:21 Uterine size for dates discrepancy 350481000 O26.843 Z3A.34 [id number] MD Barbra Unger [address],[place] [address] 07/15/2023 12:18:11 07/15/2023 13:00:06 screening 303826984 Z36.87 O36.8910 Z3A.01 [id number] MD Barbra Unger [address],[place] [address] 07/29/2023 15:40:21 07/29/2023 16:17:44 [id number] MD Barbra Unger [address] [place] [address] 07/29/2023 15:40:45 07/29/2023 21:27:49 [id number] MD Barbra Unger [address],[place] [address] 08/05/2023 14:12:22 08/05/2023 15:28:48 Amenorrhea 51245051 N91.2 this patient is a 28-year-ol d [...] her next visit. for breech. Discussed risk [id number] Hammad Cuevas MD [place] [address],[place] [address] 08/28/2023 14:26:12 08/28/2023 14:51:03 [id number] Hammad Cuevas MD [place] [address],[place] [address] 08/28/2023 14:26:33 08/29/2023 11:32:13 Missed miscarriage 90867228 O02.1 This patient is a 28 y/o [...] of Cytotec and precaution s about bleeding. [id number] Hammad Cuevas MD [place] [address] [address] 09/05/2023 09:28:19 09/05/2023 10:03:43 Missed miscarriage 27909040 O02.1 Z3A.00 This patient is a 28 [...] of Cytotec and precaution s about bleeding. [id number] Hammad Cuevas MD [place] [address],[facility] [place] [address] 09/06/2023 13:47:02 09/07/2023 11:34:03 Missed miscarriage 27454161 O02.1 Z3A.00 this patient is a 28-year-ol [...] ce. More than 50% was counseling . [id number] Hammad Cuevas MD [place] [address],[place] [address] 09/12/2023 11:57:02 09/12/2023 12:31:38 Retained products of conception 161055900 O72.2 [id number] Hammad Cuevas MD [place] [address],[place] [address] 09/12/2023 11:57:22 09/13/2023 10:22:56 Retained products of conception 555175487 O72.2 This patient is a 28-year-ol d female with retained products conception . We agreed to perform suction D&C. She understand s the risks, benefits, and alternativ es. She is completed the informed consent process and is ready to proceed. [id number] Hammad Cuevas MD [place] [address],[place] [address] 09/19/2023 11:26:43 09/19/2023 12:24:03 Missed miscarriage 86819397 O02.1 Z3A.00 this patient presents for postop follow-up. She is 1 week postop from a suction D&C. She is recovering normally. Her bleeding is minimal. She has no foul-smell ing vaginal discharge. She denies any nausea, vomiting, fever, chills. We discussed contracept ion. We discussed future . D&C was for missed A/B. test is negative today. [id number] Hammad Cuevas MD [place] [address],[place] [address] 01/06/2024 09:20:55 01/06/2024 09:53:04 [id number] Hammad Cuevas MD [place] [address],[place] [address] 01/06/2024 09:21:58 01/06/2024 11:10:32 Amenorrhea 38742163 N91.2 this patient is a 28-year-ol d [...] her next visit. for breech. Discussed risk [id number] MD Barbra Unger [address],[place] [address] 02/10/2024 09:25:50 02/10/2024 10:12:39 screening 744194149 Z36.89 Z3A.12 [id number] MD Barbra Unger [address],[place] [address] 02/10/2024 09:26:44 02/10/2024 11:08:30 Routine care 983129411 Z34.91 [id number] MD Barbra Unger [address],[place] [address] 03/16/2024 10:03:41 03/16/2024 11:02:17 Routine care 050283607 Z34.91 [id number] MD Barbra Unger [address] [address] 04/09/2024 14:50:05 04/09/2024 16:16:46 screening for malformation 848608642 Z36.3 Z3A.20 [id number] MD Barbra Un[place] [address] [address] 04/09/2024 14:51:11 04/09/2024 16:37:51 Routine care 308962201 Z34.91 [id number] MD Barbra Unger [address],[place] [address] 05/04/2024 09:29:30 05/04/2024 10:30:52 Routine care 522448433 Z34.91 [id number] MD Barbra Unger [address] [address] 06/01/2024 09:20:46 06/01/2024 17:14:46 Routine care 046921949 Z34.91 [id number] MD Barbra Unger [address] [address] 06/18/2024 09:23:15 06/18/2024 10:10:15 Routine care 284330520 Z34.91 [id number] MD Barbra Unger [address] [address] 06/29/2024 09:35:08 06/29/2024 10:33:35 section following previous section 805721617 O34.219 [id number] MD Barbra Unger [address],[place] [address] 07/13/2024 10:39:15 07/13/2024 11:48:23 section following previous section 482317136 O34.219 [id number] Hammad Cuevas MD [place] [address] [address] 07/27/2024 09:33:34 07/27/2024 10:22:05 Routine care 778429439 Z34.91 [id number] MD Barbra Unger [address] [address] 08/03/2024 15:33:11 08/03/2024 17:50:24 care status 062968217 Z34.83 [id number] Genia Moreno [facility] [address],[place] [address] 08/11/2024 09:24:00 08/11/2024 09:50:07 Gestation period, 38 weeks 56576348 Z3A.38 [id number] MD Barbra Unger [address],[place] [address] 08/14/2024 08:43:21 08/21/2024 03:54:46 [id number] Hammad Cuevas MD [place] [address] [address] 08/20/2024 09:48:20 08/20/2024 10:36:50 Postoperative visit 603979919 Z48.89 This patient is a 29-year-ol d female who presents for postop follow-up. She is 1 week postop from a delivery. Her incision is clean dry and intact. She has no complaints . Her bleeding is minimal. She denies any nausea, vomiting, fever, chills. She denies any chest pain or shortness of breath. Her baby is doing well. Her mood is good. Health Concerns Section Related Observation LastModified by Organization Detai ls LastModified Time None Recorded Concern Status LastModified by Organization Details LastModified Time None Recorded Advance Directives Directive N: Payers Encounter Date Sequence Insurance Name Policy Number Policy Walker Covered Member ID Walker Member ID Guarantor Name 07/27/2024 1 [facility] [id number] Emilie M Ashley [id number] [facility] 08/03/2024 1 [facility] [id number] Emilie Munsebastián [id number] Emilie Munsebastián 08/11/2024 1 [facility] [id number] Emilie Munsebastián [id number] Emilie Munsebastián 08/14/2024 1 [facility] [id number] Emilie Munsebastián [id number] Emilie Munsebastián 08/20/2024 1 [facility] [id number] Emilie Ashley [id number] [facility] Notes Date Note Type Note Provider Name and Address Organization Details Recorded Time 08/20/2024 text/html This patient is a 29-year-old female who presents for postop follow-up. She is 1 week postop from a delivery. Her incision is clean dry and intact. She has no complaints. Her bleeding is minimal. She denies any nausea, vomiting, fever, chills. She denies any chest pain or shortness of breath. Her baby is doing well. Her mood is good. Hammad Cuevas MD [address], [place], [address], [facility] 08/20/2024 10:33:13 OBGyn Episode Ob Episode Information Episode Created Date Number of Fetuses Patient Bloodtype Patient rh Status Prepregnancy Weight lbs Domestic Partner Domestic Partner Phone Father Name Operational Test Mechanic Status 01/09/20 22 1 O Positive 126 CLOSED Fetus Data First Name Last Name Admitted to NICU Weight (g) Sex Living Outcome Pediatric Complications Fetus ID Race Codes Race Delivery Type 3090.09 56 F true Full Term [id number] Primary Problems Problem Notes AFP WNL Problem Name Start Date End Date Resolution Snomed Code Not e Breech presentation 9430462 CS 07/16 unless no longer breech Placenta previa SELFRESOLVED 22115903 m arginal- US q4, pelvic rest RESOLVED!! Uterine size for dates discrepancy 05/16/2022 887575742 Geo Calculation Initial Geo Date Initial Exam [...] Date Ultra Sound Latest Days Gestation 0 [email or web address] 01/08/2022 07/23/19 23 0 Pre-analia Flowsheet Flowsheet Date 01/08/2022 Gavin Score Blood Edema Fundus Height Fundus Units Glucose Ketones Leukocytes Nitrite Labor Signs Protein Cervic Dilation Cervic Effacement Cervic Station neg none none trace Type Weight in lbs Pre/Post Dialysis Refused Weight 126.78042132466 BP Diastolic BP Location Tested BP Systolic BP Type 77 123 Fetus Heart Rate Present A 160 Fetus Movement A No Comments Emilie is a G1 at 12.1 for pre analia care. her history is noncontributory. Has had COVID vaccines, will get booster. Will get flu shot also. Labs and NIPT today. AFP next visit. Routine care. Flowsheet Date 02/07/2022 Gavin Score Blood Edema Fundus Height Fundus Units Glucose Ketones Leukocytes Nitrite Labor Signs Protein Cervic Dilation Cervic Effacement Cervic Station 12 Type Weight in lbs Pre/Post Dialysis Refused Weight 134.682024823743 BP Diastolic BP Location Tested BP Systolic [...] Weight in lbs Pre/Post Dialysis Refused Weight 138.877220299037 BP Diastolic BP Location Tested BP Systolic [...] Weight in lbs Pre/Post Dialysis Refused Weight 145.2456252389 BP Diastolic BP Location Tested BP Systolic [...] Weight in lbs Pre/Post Dialysis Refused Weight 150.500323501869 BP Diastolic BP Location Tested BP Systolic [...] Weight in lbs Pre/Post Dialysis Refused Weight 155.26332949637 BP Diastolic BP Location Tested BP Systolic [...] Weight in lbs Pre/Post Dialysis Refused Weight 157.142177903174 BP Diastolic BP Location Tested BP Systolic [...] Weight in lbs Pre/Post Dialysis Refused Weight 158.330857847589 BP Diastolic BP Location Tested BP Systolic [...] Weight in lbs Pre/Post Dialysis Refused Weight 163.962435725801 BP Diastolic BP Location Tested BP Systolic [...] Weight in lbs Pre/Post Dialysis Refused Weight 163.241751522017 BP Diastolic BP Location Tested BP Systolic BP Type 80 126 Fetus Heart Rate Present A 130 Fetus Movement A Yes Comments Doing well. GBS neg. CS sche duled 07/16, baby does not seem to be moving from breech. Great FM though. Flowsheet Date 07/11/2022 Gavin Score Blood Edema Fundus Height Fundus Units Glucose Ketones Leukocytes Nitrite Labor Signs Protein Cervic Dilation Cervic Effacement Cervic Station neg none 34 none trace Type Weight in lbs Pre/Post Dialysis Refused Weight 164.95011871322 BP Diastolic BP Location Tested BP Systolic [...] Weight in lbs Pre/Post Dialysis Refused Weight 145.0376160253 BP Diastolic BP Location Tested BP Systolic [...] Estim ated Date of Delivery false Thalassemia (Polish, Thai, Mediterranean, Or Background): MCV < 80 false Neural Tube Defect (Meningomyelocele, Spina Bifi da, Or Anencephaly) false Congenital Heart Defect false Down Syndrome false Johnny-Sachs (eg, Latter-Day, Cajun, Maltese-Orange) f alse Agnieszka Disease false Sickle Cell Disease Or Trait () false Hemophilia Or Other Blood Disorders false Muscular Dystrophy false Cystic Fibrosis false [place]'s Chorea false Intellectual Disability/Autism false If Yes, [...] Domestic Partner Domestic Partner Phone Father Name Operational Test Mechanic Status 01/06/20 24 1 DELETED Geo Calculation [...] Domestic Partner Domestic Partner Phone Father Name Operational Test Mechanic Status 02/10/20 24 1 O Positive 133 Titi Ramirez CLOSED Fetus Data First Name Last Name Admitted to NICU Weight (g) Sex Living Outcome Pediatric Complications Fetus ID Race Codes Race Delivery Type Joseph 3515.33 8 M true Full Term 27533 Repeat Problems Problem Notes Problem Name Start Date End Date Resolution Snomed Code Not e Deliveries by Done for breech, REPEAT Geo Calculation Initial [...] Gestation 0 [email or web address] 02/10/2024 08/22/19 25 0 Pre- Flowsheet Flowsheet Date 02/10/2024 Gavin Score Blood Edema Fundus Height Fundus Units Glucose Ketones Leukocytes Nitrite Labor Signs Protein Cervic Dilation Cervic Effacement Cervic Station Type Weight in lbs Pre/Post Dialysis Refused 135.93756570363 BP Diastolic BP Location Tested BP Systolic [...] Type Weight in lbs Pre/Post Dialysis Refused 143.576946535213 BP Diastolic BP Location Tested BP Systolic [...] Type Weight in lbs Pre/Post Dialysis Refused 146.430329820642 BP Diastolic BP Location Tested BP Systolic [...] Type Weight in lbs Pre/Post Dialysis Refused 149.939063871160 BP Diastolic BP Location Tested BP Systolic [...] Type Weight in lbs Pre/Post Dialysis Refused 158.081652036911 BP Diastolic BP Location Tested BP Systolic [...] Weight in lbs Pre/Post Dialysis Refused Weight 159.359808916303 BP Diastolic BP Location Tested BP Systolic [...] Weight in lbs Pre/Post Dialysis Refused Weight 158.206865633504 BP Diastolic BP Location Tested BP Systolic [...] Weight in lbs Pre/Post Dialysis Refused Weight 164.411503856581 BP Diastolic BP Location Tested BP Systolic [...] Weight in lbs Pre/Post Dialysis Refused Weight 163.953424096162 BP Diastolic BP Location Tested BP Systolic [...] Type Weight in lbs Pre/Post Dialysis Refused 165.847787097190 BP Diastolic BP Location Tested BP Systolic [...] Weight in lbs Pre/Post Dialysis Refused Weight 164.614004912151 BP Diastolic BP Location Tested BP Systolic BP Type 71 121 Fetus Heart Rate Present Fetus Movement A Yes Comments Patient is having some swell ing. c/s on saturday, +FM will schedule post op and pp visit, precautions and education f/u one week Flowsheet Date 08/14/2024 Gavin Score Blood Edema Fundus Height Fundus Units Glucose Ketones Leukocytes Nitrite Labor Signs Protein Cervic Dilation Cervic Effacement Cervic Station Type Weight in lbs Pre/Post Dialysis Refused BP Diastolic BP Location Tested BP Systolic BP Type Fetus Heart Rate Present Fetus Movement Comments Flowsheet Date 08/20/2024 Gavin Score Blood Edema Fundus Height Fundus Units Glucose Ketones Leukocytes Nitrite Labor Signs Protein Cervic Dilation Cervic Effacement Cervic Station Type Weight in lbs Pre/Post Dialysis Refused Weight 153.756977661686 BP Diastolic BP Location Tested BP Systolic BP Type 86 L arm 129 sitting Fetus Heart Rate Present Fetus Movement Comments Menstrual History Last Menstrual Date Menses Monthly On Bcp Conception Prior Menses Frequency Hcg Plus Date Menarche Onset Age 0711/04/2023 false false Delivery Information Delivery Date Delivery Type Labor Anesthesia Weeks Gestation Incision Type Labor Labor Length Hrs Delivered By Post Complications Tubal Sterilization Discharge Date Comments 5 Induce d 39 Low Transvers e false false Discharge Information Feeding Method Contraceptive Method Maternal HG B and HCT Levels Ob Episode Information Episode Created Date Number of Fetuses Patient Bloodtype Patient rh Status Prepregnancy Weight lbs Domestic Partner Domestic Partner Phone Father Name Operational Test Mechanic Status 02/10/20 24 1 CLOSED Fetus Data First Name Last Name Admitted to NICU Weight (g) Sex Living Outcome Pediatric Complications Fetus ID Race Codes Race Delivery Type , Spontane ous [id number] Geo Calculation Initial Geo Date Initial Exam [...]
[2024-09-19 17:48] VITALS: BP 132/88; PULSE 78; RESP 16; TEMP 36.8; O2SAT 100
[2024-09-19 17:53] VITALS: O2SAT 100
[2024-09-19 17:54] VITALS: BP 132/88; TEMP 36.8; O2SAT 100
[2024-09-19] MEDS: LACTATED RINGERS 1,000 ML 999 ML IV CONT ×2 (18:39→18:40)
[2024-09-19 18:40] LABS: Basophils Percent Auto 0.5 % (0.2-1.2); Eosinophils Percent Auto 0.3 % (0-4.4); Hematocrit 44.1 % (37.0-47.0); Hemoglobin 14.5 g/dL (12.0-15.0); Immature Granulocyte Absolute 0.02 K/mm3 (0.00-0.031); Immature Granulocyte Percent A 0.3 % (0-0.5); Lymphocytes Absolute Auto 1.71 K/mm3 (0.9-3.2); Lymphocytes Percent Auto 28.6 % (18.3-44.2); Mean Corpuscular HGB Conc 32.9 g/dl (32-36); Mean Corpuscular Hemoglobin 32.1 pg (26-34); Mean Corpuscular Volume 97.6 fl (80-100); Mean Platelet Volume 9.2 fl (7.4-10.4); Monocytes Absolute Auto 0.3 K/mm3 (0.1-0.6); Monocytes Percent Auto 5.5 % (2.6-8.5); Neutrophils Absolute Auto 3.9 K/mm3 (1.3-6.7); Neutrophils Percent Auto 64.8 % (45.5-73.1); Platelet Count Result 267 k/mm3 (150-375); Red Blood Count 4.52 M/mm3 (4.2-5.4); Red Cell Distribution Width 11.7 % (11.5-14.5)
[2024-09-19] MEDS: LACTATED RINGERS 200 ML 999 ML IV CONT (18:40)
[2024-09-19 18:41] LABS: Add Urine Microscopic? YES; Appearance Urine Clear (Clear); Bacteria Urine None Seen /hpf; Bilirubin Urine Negative (Negative); Blood Urine Trace (Negative); Color Urine Yellow (Yellow); Glucose Urine UA Negative (Negative); Ketones Urine Negative (Negative); Leukocyte Esterase Ur Trace LEU/UL (Negative); Nitrate Urine Negative (Negative); Non Pathogenic Casts 0-2; Protein Urine Negative (Negative); RBC Urine 0-2 /hpf (0-2); Specific Grav Ur 1.006 (1.001-1.035); Squamous Epithelial Cell Urine None Seen /hpf (Few); Urobilinogen Urine 0.2 mg/dL (<2.0); WBC Urine 0-5 /hpf (0-3)
--- OUTSIDE RECORDS SUMMARY | 2024-09-19 18:42 | XMS_ITS | Clinical Summary ---
Author Organization [facility] Care Team Providers Care Supervisor Malt House Name Role Phone Unavailable Primary Care Provider Unavailabl e Social History Tobacco Use Types Packs/Day Years Used Date Smoking Tobacco: Never Assessed Comments Unknown Sex and Gender Information Value Date Recorded Sex Assigned at Not on file Legal Sex Female 1:21 PM [employer]OTH STOCK [employer] Gender Identity Not on file Sexual Orientation [...] based on patient's age to complete this topic"
--- OUTSIDE RECORDS SUMMARY | 2024-09-19 18:42 | XMS_ITS | Clinical Summary ---
Author Organization [facility] Address [address] [place] [address] Care Team Providers Care First Coat Operator Name Role Phone Unavailable Primary Care Provider Unavailabl e Source Comments [facility],non-owned Affiliates and Associated Physician Practices is amultiple site organization consisting of ambulatory clinics and hospital sitesin [place], [place], [place] and [place]. This disclosure is being madepursuant to the Care Everywhere program and may not contain all information available regarding this patient. Last updated 18.[facility] [employer] Social History Tobacco Use Types Packs/Day Years [...] Date of Phone Billing Address Personal/Family [phone] [facility] SELF PAY NO INSURANCE Member Subscriber Plan / Payer (Ef fective for All Dates) Name:Michelle Cheney Member ID:Not on file Relation to Subscriber:Not on file Name:MICHELLE CHENEY Subscriber ID:Not on file Address: [address] [place] [address] Payer ID:Not on file Group ID:Not on file Type:Self Pay Address: [facility] * Guarantor: MICHELLE CHENEY Type Relation to Patient Date of Phone Billing Address Personal/Family [address] [place] [address] HEALTH CARE SELF PAY NO INSURANCE Member Subscriber Plan / Payer (Ef fective for All Dates) Name:Michelle Cheney Member ID:Not on file Relation to Subscriber:Not on file Name:MICHELLE CHENEY Subscriber ID:Not on file Address: [address] [place] [id number] Payer ID:Not on file Group ID:Not on file Type:Self Pay Address: [place], [place] * Guarantor: MICHELLE CHENEY Account Type Relation to Patient Date of Phone Billing Address Personal/Family [address] [place] [id number] [facility] SELF PAY NO INSURANCE Member Subscriber Plan / Payer (Ef fective for All Dates) Name:Michelle Cheney Member ID:Not on file Relation to Subscriber:Not on file Name:MICHELLE CHENEY Subscriber ID:Not on file Address: [address] [place] [id number] Payer ID:Not on file Group ID:Not on file Type:Self Pay Address: [place], [place]
[2024-09-19 18:49] LABS: Lactic Acid Reflex 0.7 mmol/L (0.7-2.0)
[2024-09-19 18:52] LABS: Prothrombin Time 13.3 Seconds (11.1-14.7)
[2024-09-19 18:53] LABS: Alanine Aminotransferase 49 U/L (6-35); Albumin Level 5.1 g/dL (3.5-5.1); Alkaline Phosphatase 107 U/L (38-126); Anion Gap 14 mmol/L (4-12); Aspartate Amino Transferase 48 U/L (14-36); Bilirubin,Total 0.7 mg/dL (0.2-1.3); Blood Urea Nitrogen 12 mg/dL (7-17); Calcium 9.9 mg/dL (8.4-10.2); Carbon Dioxide 22 mmol/L (22-30); Chloride 102 mmol/L (98-107); Estimated CRCL calculation 96 ml/min; Estimated Glomerular Filt Rate > 60; Glucose 100 mg/dL (65-110); Partial Thromboplastin Time 28.2 Seconds (22.3-36.8); Potassium 4.3 mmol/L (3.4-5.0); Sodium 138 mmol/L (137-145); Total Protein 9.5 g/dL (6.3-8.2)
[2024-09-19 19:46] LABS: Influenza A QL RT-PCR Negative (Negative); Influenza B QL RT-PCR Negative (Negative); RSV RNA, RT-PCR Negative (Negative); SARS-CoV-2 RNA PCR Negative (Negative)
--- NOTE | 2024-09-19 19:54 | ED_ITS ---
HPI - Fever General Chief Complaint: Fever Stated Complaint: fever, csection 1mo ago Time Seen by Provider: 09/19/24 18:37 History of Present Illness HPI Narrative: 29-year-old female presents to emergency department for pain to her site. Patient had an uncomplicated on 08/14/[address] Cuevas. Patient states over the past couple weeks she has developed tenderness along the site and has noticed scant amount of blood on her underwear where her underwear touches her C section scar. She states today she developed a fever of 102 along with a headache. She contacted her OBGYN, Dr. Cuevas, who advised to come to the ED for further evaluation. She is also reporting a cough. States she is having light vaginal spotting. States she took Tylenol prior to arrival with improvement in her headache and fever. Patient states her and delivery were uncomplicated. Related Data Home Medications ?Medication ?Instructions ?Recorded ?Confirmed ?Last Taken ?Type vit no.95-ferrous 1 tablet PO DAILY 07/27/24 07/27/24 07/27/24 History fumarate 28 mg-folic acid 800 mcg tablet () Allergies Allergy/AdvReac Type Severity Reaction Status Date / Time No Known Allergies Allergy Verified 07/27/24 15:45 Review of Systems 2 Review of Systems: All systems reviewed & are unremarkable except as noted in HPI and below PMFSH Past Medical History Medical History Missed ab Family History Family History Father Hypertension Grandparent Diabetes mellitus Heart disease Grandparent Diabetes mellitus Social History Social History Smoking status: Never smoker Alcohol intake: current Drinks per week: 1 Substance use: never Do You Feel Safe in your Home?: Yes Lack of Transportation: No Lack of Food: Never True Current Housing: I Have Housing Concerned About Future Housing: No Difficulty Paying Gas/Electric Bills: No Difficulty Paying for Meds: No Currently Unemployed: No Education: Bachelor's Degree Difficulty w/ Childcare or Family Care: No Living arrangements: with family Spiritual care concerns: No Exam 2 Narrative: GENERAL: Well-appearing, well-nourished, and in no acute distress. HEAD: Normocephalic, atraumatic. EYES: PERRLA and EOMI. ENT: Nares clear, no rhinorrhea or epistaxis. Mucous membranes moist. NECK: Supple. CHEST: Coarse lung sounds in the bilateral lower catherine, no respiratory distress. Patient speaking in full sentences. No wheezing or rhonchi HEART: Regular rate and rhythm. No murmur heard. Normal peripheral pulses. ABDOMEN: Normoactive bowel sounds. Abdomen soft with mild suprapubic tenderness. Well-healed scar with no wound dehiscence, erythema or warmth, no drainage or fluctuance EXTREMITIES: Normal range of motion. No edema. SKIN: Warm, dry, no rash. NEURO: No focal deficits. Alert and oriented x3 Course Vital Signs Vital signs: Vital Signs Temperature 98.2 F 09/19/24 17:48 Pulse Rate 78 09/19/24 17:48 Respiratory Rate 16 09/19/24 17:48 Blood Pressure 132/88 09/19/24 17:48 Pulse Oximetry 100 09/19/24 17:48 Oxygen Delivery Room Air 09/19/24 17:48 Temperature 98.2 F 09/19/24 17:54 Pulse Rate 78 09/19/24 17:48 Respiratory Rate 16 09/19/24 17:48 Blood Pressure 132/88 09/19/24 17:54 Pulse Oximetry 100 09/19/24 17:54 Oxygen Delivery Room Air 09/19/24 17:48 MDM - Fever MDM Narrative Medical decision making narrative: 29-year-old female who had a uncomplicated on 08/14/[address] Ceuvas presents to the emergency department for pain to her scar for the past few weeks, headache and fever that started today. Patient took Tylenol prior to arrival. Upon arrival to the ED she is afebrile and nontoxic appearing. Exam is notable for the above. incision is well appearing. Lab work shows no leukocytosis or anemia. Chemistries with mild elevation in AST and ALT of 48 and 49 respectively, normal alk-phos and bilirubin. No tenderness to the right upper quadrant. UA with trace leuk esterase, no white blood cells RBCs. Viral swabs are negative. Lactic acid normal. CT abd/pelvis IMPRESSION: Mild esophagitis/gastritis. Hepatomegaly. Surgical changes status post section, with no CT evidence of related complications. Moderate volume of colonic fecal material. Correlate for clinical findings of constipation. Chest x-ray shows superior segment right lower lobe opacities as can be seen with aspiration or atypical infection. Patient and at bedside updated on results. Patient took Tylenol prior to arrival and states her headache has largely resolved. I did discuss presentation and findings with patient's OBGYN, Dr. Cuevas. Discussed possibility of preeclampsia given reported headache, elevated LFTs and borderline blood pressures of 130/80. Dr. Cuevas feels this is less likely given patient is greater than 4 weeks , her blood pressure is not remarkably elevated, her LFTs are not remarkably elevated and she has no proteinurea. BP now is 127/86. He agrees to treat the patient for CAP with Augmentin and azithromycin which are both safe in breast-feeding (Augmentin will also cover anaerobic bacteria in the case of aspiration, however the patient has low risk factors for aspiration pneumonia.) I will also provide docusate and MiraLax for constipation. Dr. Cuevas advises to have the patient come to his office Saturday morning at 9am for f/u. This is related the patient. She is in agreement with this plan. She was given 1st doses of antibiotics in the ED. Discussed strict ED return precautions. All questions answered. Discharged in stable condition. Lab Data 09/19/24 18:25 09/19/24 18:25 Labs: Lab Results 09/19/24 09/19/24 Range/Units 18:25 19:07 WBC 6.0 (4.5-10.0) K/mm3 RBC 4.52 (4.2-5.4) M/mm3 Hgb 14.5 D (12.0-15.0) g/dL Hct 44.1 (37.0-47.0) % MCV 97.6 (80-100) fl MCH 32.1 (26-34) pg MCHC 32.9 (32-36) g/dl RDW 11.7 (11.5-14.5) % Plt Count 267 D (150-375) k/mm3 MPV 9.2 (7.4-10.4) fl Immature Gran % (Auto) 0.3 (0-0.5) % Neut % (Auto) 64.8 (45.5-73.1) % Lymph % (Auto) 28.6 (18.3-44.2) % [place] % (Auto) 5.5 (2.6-8.5) % Eos % (Auto) 0.3 (0-4.4) % Baso % (Auto) 0.5 (0.2-1.2) % Lymph # (Auto) 1.71 (0.9-3.2) K/mm3 [place] # (Auto) 0.3 (0.1-0.6) K/mm3 Eos # (Auto) 0.0 (0-0.3) K/mm3 Baso # (Auto) 0.0 (0.0-0.1) K/mm3 Abs Immat Gran (auto) 0.02 (0.00-0.031) K/mm3 Absolute Neuts (auto) 3.9 (1.3-6.7) K/mm3 Absolute Nucleated RBC 0.000 (0.0-0.012) K/mm3 Nucleated RBC % 0.0 (0.0-0.2) % PT 13.3 (11.1-14.7) Seconds INR 1.0 APTT 28.2 (22.3-36.8) Seconds Sodium 138 (137-145) mmol/L Potassium 4.3 (3.4-5.0) mmol/L Chloride 102 (98-107) mmol/L Carbon Dioxide 22 (22-30) mmol/L Anion Gap 14 H (4-12) mmol/L BUN 12 (7-17) mg/dL Creatinine 0.76 (0.7-1.0) mg/dL Estim Creat Clear Calc 96 ml/min Estimated GFR > 60 (59 - ) Glucose 100 (65-110) mg/dL Lactic Acid 0.7 (0.7-2.0) mmol/L Calcium 9.9 (8.4-10.2) mg/dL Total Bilirubin 0.7 (0.2-1.3) mg/dL AST 48 H (14-36) U/L ALT 49 H (6-35) U/L Alkaline Phosphatase 107 (38-126) U/L C-Reactive Protein 3.0 H (<1.0) mg/dL Total Protein 9.5 H (6.3-8.2) g/dL Albumin 5.1 (3.5-5.1) g/dL Urine Color Yellow (Yellow) Urine Appearance Clear (Clear) Urine pH 6.0 (5.0-9.0) Ur Specific [place] 1.006 (1.001-1.035) Urine Protein Negative (Negative) mg/dL Urine Glucose (UA) Negative (Negative) mg/dL Urine Ketones Negative (Negative) mg/dL Ur Blood (Man) Trace (Negative) Urine Nitrate Negative (Negative) Urine Bilirubin Negative (Negative) Urine Urobilinogen 0.2 (<2.0) mg/dL Leukocyte Esterase Rfl Trace H (Negative) OSCAR/UL Urine RBC 0-2 (0-2) /hpf Urine WBC 0-5 (0-3) /hpf Ur Squamous Epith Cells None seen (Few) /hpf Urine Bacteria None seen /hpf Urine Casts 0-2 Influenza A (RT-PCR) Negative (Negative) Influenza B (RT-PCR) Negative (Negative) RSV (RT-PCR) Negative (Negative) SARS-CoV-2 RNA (RT-PCR) Negative (Negative) Discharge Plan Discharge Clinical Impression: Hepatomegaly CAP (community acquired pneumonia) Qualifiers: Laterality: right Lung location: lower lobe of lung Qualified Code(s): J18.9 - Pneumonia, unspecified organism Constipation Qualifiers: Constipation type: unspecified constipation type Qualified Code(s): K59.00 - Constipation, unspecified Patient Disposition: Home Condition: Stable Instructions: Antibiotic Form, Community Acquired Pneumonia (DC) Additional Instructions: Your evaluated in the emergency department for fever and pain your incision site. Your CT scan shows some inflammation of your stomach and esophagus, enlarged liver and postoperative surgical changes as well as constipation. These do not explain the source of your fever. Your found have pneumonia which could explain your symptoms. Please take the antibiotics as directed. I have also sent MiraLax and stool softeners to the pharmacy. Make sure to drink plenty of fluids. Please follow-up closely with Dr. Cuevas on Saturday morning at her appointment at 8:30 a.m.. Department if you develop worsening headache, vision changes, focal numbness or weakness, shortness of breath, worsening abdominal pain, you are bleeding through 1 pad or tampon an hour, or other concerning symptoms. Patient Language: Arabic Prescriptions: New amoxicillin-pot clavulanate 875-125 mg tablet 1 tablet PO Q12H Qty: 14 0RF azithromycin 250 mg tablet See Rx Instructions .ROUTE .COMPLEX Qty: 6 0RF Rx Instructions: For 250 mg dose pack: take 500 mg today (day 1), then 250 mg for 4 days (days 2-5) docusate sodium 250 mg capsule 250 mg PO DAILY Qty: 14 0RF polyethylene glycol 3350 17 gram/dose powder 17 g PO DAILY Qty: 119 0RF No Action PNV cmb#95-ferrous fumarate-FA [] 28 mg iron- 800 mcg tablet 1 tablet PO DAILY Follow-up/Referrals: Hammad Cuevas MD [Physician] - UNKNOWN,DOCTOR [Primary Care Provider] -
[2024-09-19] MEDS: AZITHROMYCIN 250 MG TABLET 500 MG PO (20:40)
[2024-09-19] MEDS: AMOXICILLIN/CLAVULANATE K 875-125 MG TAB 1 TABLET PO (20:40)
[2024-09-19 21:08] VITALS: BP 120/77; PULSE 66; RESP 14; TEMP 37.4; O2SAT 100
[2024-09-19 21:16] VITALS: BP 120/77; PULSE 66; RESP 14; TEMP 37.4; O2SAT 100
== END 2024-09-19 21:17 | disposition home or self-care (01) ==
PROVIDERS: Emergency Medicine; Emergency Provider Physician Assistant
DX: O99.53 Diseases of the respiratory system complicating the puerperium (principal); J18.9 Pneumonia, unspecified organism; O99.63 Diseases of the digestive system complicating the puerperium; K59.00 Constipation, unspecified; O99.893 Other specified diseases and conditions complicating puerperium; R16.0 Hepatomegaly, not elsewhere classified; Z20.822 Contact with and (suspected) exposure to COVID-19
CPT/HCPCS: 36415; 71046; 74177; 80053; 81001; 83605; 85025; 85610; 85730; 86140; 87040; 87637; 96360; 99284; A9270; J7120; Q9967